=== PATIENT | female | born 1955 | race Caucasian/White ===

== ENCOUNTER 2023-05-30 12:11 | Emergency (ER) | payer MEDICARE, OTHER ==
[~2023-05-30] VITALS: Ht 152.4 cm; Wt 55.8 kg
[2023-05-30] MEDS ORDERED: ONDANSETRON HCL/PF 4 MG/2 ML VIAL IVP ONE (13:00)
[2023-05-30] MEDS ORDERED: MORPHINE SULFATE INJ 2 MG/ML DISP.SYRIN IV ONE ×2 (13:00→15:00)
[2023-05-30] MEDS ORDERED: IV NS 0.9% 1,000 ML BAG IV ONE (13:00)
[2023-05-30] MEDS ORDERED: ONDANSETRON HCL/PF 4 MG/2 ML VIAL ONE ×3 (13:09→15:17)
[2023-05-30] MEDS ORDERED: MORPHINE SULFATE INJ 4 MG/ML DISP.SYRIN ONE ×2 (13:09→15:11)
[2023-05-30 13:15] LABS: APPEARANCE,URINE CLEAR (CLEAR); BILIRUBIN,URINE 1+ (NEGATIVE); BLOOD, URINE 3+ Ery/uL (NEGATIVE); COLOR,URINE YELLOW (YELLOW); KETONES,URINE TRACE mg/dL (NEGATIVE); LEUKOCYTE ESTERASE ,URINE NEGATIVE (NEGATIVE); NITRITE, URINE NEGATIVE (NEGATIVE); PH,URINE 5.5 (5.0-8.0); PROTEIN,URINE 1+ mg/dl (NEGATIVE); UGLUCOSE NEGATIVE (NEGATIVE); UROBILINOGEN,URINE 0.2 EU/dL (0.2)
[2023-05-30 13:21] LABS: BASOPHILS % (AUTO) 0.5 % (0.0-2.0); EOSINOPHILS % (AUTO) 0.5 % (0.0-6.0); HEMATOCRIT 37 % (33-45); HEMOGLOBIN 12.1 g/dL (11.5-14.8); LYMPHOCYTES # (AUTO) 0.8 K/uL (0.8-4.8); LYMPHOCYTES % (AUTO) 10.6 % (20.0-44.0); MEAN CORPUSCULAR HEMOGLOBIN 28 PG (26.0-33.0); MEAN CORPUSCULAR HGB CONC 33 g/dl (31.0-36.0); MEAN CORPUSCULAR VOLUME 87 fL (82-100); MONOCYTES # (AUTO) 0.4 K/uL (0.1-1.30); MONOCYTES % (AUTO) 5.6 % (2.0-12.0); NEUTROPHILS # (AUTO) 6.4 K/uL (1.8-8.9); NEUTROPHILS % (AUTO) 82.8 % (43.0-81.0); PLATELET COUNT (AUTO) 251 K/uL (150-450); RED BLOOD CELL COUNT(AUTO) 4.27 MIL/uL (4.0-5.2); RED CELL DISTRIBUTION WIDTH 13.2 % (11.5-15.0); WHITE BLOOD COUNT (AUTO) 7.8 K/uL (4.3-11.0)
[2023-05-30 13:36] LABS: CALCIUM, SERUM 9.6 mg/dL (8.5-10.1); POTASSIUM 3.6 mmol/L (3.5-5.1)
[2023-05-30 13:42] LABS: ALBUMIN 3.8 g/dL (3.4-5.0); BILIRUBIN,DIRECT 0.1 mg/dL (0.0-0.2); BILIRUBIN,TOTAL 0.4 mg/dL (0.2-1.0); TOTAL PROTEIN, SERUM 7.8 g/dL (6.4-8.2)
[2023-05-30 13:49] LABS: ADD URINE CULTURE NO; BACTERIA,URINE None seen /HPF (None Seen); MUCUS,URINE Few /LPF (None Seen); SQUAMOUS EPITHELIAL CELL,UR RARE /HPF (None Seen); WBC,URINE 0-2 /HPF (0-3)
[2023-05-30] MEDS ORDERED: ONDANSETRON HCL/PF - ER 4 MG/2 ML VIAL IV ONE (15:00)
[2023-05-30] MEDS ORDERED: CIPROFLOXACIN HCL 250 MG TABLET PO ONE (15:00)
[2023-05-30] MEDS ORDERED: CIPROFLOXACIN HCL 250 MG TABLET ONE (15:11)
[2023-05-30] MEDS ORDERED: TRAM50TA2 PO (15:21)
[2023-05-30] MEDS ORDERED: CIPR-262 PO (15:21)
[2023-05-30] MEDS ORDERED: FLUC150T5 PO (15:21)
[2023-05-30] MEDS ORDERED: ONDA4TAB11 PO (15:21)
[2023-05-30 15:48] VITALS: BP 156/92; TEMP 98.3; O2SAT 98
== END 2023-05-30 15:48 | disposition home or self-care (01) ==
LOC: ER 12:11
DX: K29.80 Duodenitis without bleeding (principal); R10.9 Unspecified abdominal pain
CPT/HCPCS: 99285; 74176; 96374; 96361; 96375; 96376; 85025; 80048; 83690; 80076; 81001; 36415; J2270 ×2; J2405 ×4; J7030

== ENCOUNTER 2023-06-04 16:21 | Inpatient (IN) | payer MEDICARE, OTHER ==
[~2023-06-04] VITALS: Ht 162.6 cm; Wt 61.2 kg
[~2023-06-04 16:21] MED LIST: CIPR-262 PO; FLUC150T5 PO; ONDA4TAB11 PO; TRAM50TA2 PO
[2023-06-04] MEDS ORDERED: IV NS 0.9% 1,000 ML BAG IV ONE (17:00)
[2023-06-04] MEDS ORDERED: ONDANSETRON HCL/PF 4 MG/2 ML VIAL IVP ONE (17:00)
[2023-06-04] MEDS ORDERED: ONDANSETRON HCL/PF 4 MG/2 ML VIAL ONE (17:24)
[2023-06-04] MEDS ORDERED: MORPHINE SULFATE INJ 2 MG/ML DISP.SYRIN ONE (17:24)
[2023-06-04 17:27] LABS: BASOPHILS % (AUTO) 0.4 % (0.0-2.0); EOSINOPHILS % (AUTO) 0.4 % (0.0-6.0); HEMATOCRIT 37 % (33-45); HEMOGLOBIN 12.1 g/dL (11.5-14.8); LYMPHOCYTES # (AUTO) 0.8 K/uL (0.8-4.8); LYMPHOCYTES % (AUTO) 10.3 % (20.0-44.0); MEAN CORPUSCULAR HEMOGLOBIN 28 PG (26.0-33.0); MEAN CORPUSCULAR HGB CONC 33 g/dl (31.0-36.0); MEAN CORPUSCULAR VOLUME 86 fL (82-100); MONOCYTES # (AUTO) 0.3 K/uL (0.1-1.30); MONOCYTES % (AUTO) 3.5 % (2.0-12.0); NEUTROPHILS # (AUTO) 6.5 K/uL (1.8-8.9); NEUTROPHILS % (AUTO) 85.4 % (43.0-81.0); PLATELET COUNT (AUTO) 318 K/uL (150-450); RED BLOOD CELL COUNT(AUTO) 4.31 MIL/uL (4.0-5.2); RED CELL DISTRIBUTION WIDTH 12.9 % (11.5-15.0); WHITE BLOOD COUNT (AUTO) 7.6 K/uL (4.3-11.0)
[2023-06-04] MEDS ORDERED: MORPHINE SULFATE INJ 2 MG/ML DISP.SYRIN IV ONE (17:30)
[2023-06-04 17:46] LABS: ALBUMIN 4.1 g/dL (3.4-5.0); BILIRUBIN,DIRECT 0.1 mg/dL (0.0-0.2); BILIRUBIN,TOTAL 0.4 mg/dL (0.2-1.0); CALCIUM, SERUM 9.8 mg/dL (8.5-10.1); CREATININE 1.2 mg/dL (0.6-1.3); POTASSIUM 4.2 mmol/L (3.5-5.1); TOTAL PROTEIN, SERUM 8.1 g/dL (6.4-8.2)
[2023-06-04] MEDS ORDERED: MAG HYDROX/AL HYDROX/SIMETH 30 ML UDC PO ONE (18:00)
[2023-06-04] MEDS ORDERED: LIDOCAINE VISCOUS 2% UD 15 ML UDC MM ONE (18:00)
[2023-06-04] MEDS ORDERED: MAG HYDROX/AL HYDROX/SIMETH 30 ML UDC ONE (18:01)
[2023-06-04] MEDS ORDERED: LIDOCAINE VISCOUS 2% UD 15 ML UDC ONE (18:01)
[2023-06-04] MEDS ORDERED: PANTOPRAZOLE 40 MG VIAL ONE (18:14)
[2023-06-04] MEDS ORDERED: ERGO500093 PO (18:25)
[2023-06-04] MEDS ORDERED: CYCL30DR EACHEYE (18:25)
[2023-06-04] MEDS ORDERED: PANT40TA49 PO (18:25)
[2023-06-04] MEDS ORDERED: PANTOPRAZOLE 40 MG VIAL IV ONE (18:30)
[2023-06-04 20:30] VITALS: BP 123/69; TEMP 97.5; O2SAT 98
[2023-06-04] MEDS: IV NS 0.9% 1,000 ML IV SCH (20:53)
[2023-06-04] MEDS ORDERED: CEFEPIME 1 GM in IV D5W 50 ML IV ONE (21:00)
[2023-06-04] MEDS: FAMOTIDINE/PF INJ 20 MG/2 ML VIAL IV SCH (21:13)
[2023-06-04] MEDS: HEPARIN SODIUM, PORCINE 5000 UNITS/1 ML VIAL SQ SCH (21:16)
[2023-06-04] MEDS ORDERED: CEFEPIME 1 GM VIAL ONE (22:33)
[2023-06-05] MEDS: IV NS 0.9% 1,000 ML IV SCH ×2 (06:05→15:53)
[2023-06-05 06:58] LABS: BASOPHILS % (AUTO) 0.4 % (0.0-2.0); EOSINOPHILS # (AUTO) 0.1 K/uL (0.0-0.7); HEMATOCRIT 32 % (33-45); HEMOGLOBIN 10.5 g/dL (11.5-14.8); LYMPHOCYTES # (AUTO) 1.5 K/uL (0.8-4.8); LYMPHOCYTES % (AUTO) 24.6 % (20.0-44.0); MEAN CORPUSCULAR HEMOGLOBIN 28 PG (26.0-33.0); MEAN CORPUSCULAR HGB CONC 33 g/dl (31.0-36.0); MEAN CORPUSCULAR VOLUME 86 fL (82-100); MONOCYTES # (AUTO) 0.4 K/uL (0.1-1.30); MONOCYTES % (AUTO) 6.4 % (2.0-12.0); NEUTROPHILS # (AUTO) 4.1 K/uL (1.8-8.9); NEUTROPHILS % (AUTO) 66.6 % (43.0-81.0); PLATELET COUNT (AUTO) 257 K/uL (150-450); RED BLOOD CELL COUNT(AUTO) 3.71 MIL/uL (4.0-5.2); RED CELL DISTRIBUTION WIDTH 12.9 % (11.5-15.0); WHITE BLOOD COUNT (AUTO) 6.2 K/uL (4.3-11.0)
[2023-06-05 07:38] LABS: ALBUMIN 3.1 g/dL (3.4-5.0); BILIRUBIN,TOTAL 0.3 mg/dL (0.2-1.0); CALCIUM, SERUM 8.7 mg/dL (8.5-10.1); CREATININE 0.9 mg/dL (0.6-1.3); MAGNESIUM 2.2 mg/dL (1.8-2.4); POTASSIUM 3.6 mmol/L (3.5-5.1); TOTAL PROTEIN, SERUM 6.5 g/dL (6.4-8.2)
[2023-06-05 08:00] VITALS: BP 116/64; TEMP 97.6; O2SAT 100
[2023-06-05] MEDS: CEFEPIME 2 GM in IV D5W 100 ML IV SCH ×2 (08:46→20:35)
[2023-06-05] MEDS: DOCUSATE SODIUM LIQ 100 MG/10 ML UDC PO SCH ×2 (08:46→16:40)
[2023-06-05] MEDS: POLYETHYLENE GLYCOL 3350 17 GM POWD.PACK PO SCH (08:46)
[2023-06-05] MEDS: HEPARIN SODIUM, PORCINE 5000 UNITS/1 ML VIAL SQ SCH ×2 (08:48→20:53)
[2023-06-05] MEDS: SUCRALFATE 1 G TABLET PO SCH ×3 (13:23→21:02)
[2023-06-05 16:00] VITALS: BP 102/57; TEMP 97.2; O2SAT 96
[2023-06-05] MEDS: ONDANSETRON HCL/PF 4 MG/2 ML VIAL IVP PRN (18:40)
[2023-06-05] MEDS: MORPHINE SULFATE INJ 2 MG/ML DISP.SYRIN IV PRN (19:42)
[2023-06-05 20:00] VITALS: BP 132/67; TEMP 98.1; O2SAT 95
[2023-06-05] MEDS ORDERED: IV D5/0.45 NACL 1,000 ML IV ONE (20:30)
[2023-06-05] MEDS: FAMOTIDINE/PF INJ 20 MG/2 ML VIAL IV SCH (21:02)
[2023-06-06 06:09] LABS: CALCIUM, SERUM 8.1 mg/dL (8.5-10.1); CREATININE 0.9 mg/dL (0.6-1.3); POTASSIUM 3.2 mmol/L (3.5-5.1)
[2023-06-06] MEDS: SUCRALFATE 1 G TABLET PO SCH ×5 (07:57→21:19)
[2023-06-06] MEDS: IV D5/0.45 NACL 1,000 ML IV SCH ×3 (07:57→23:23)
[2023-06-06 08:00] VITALS: BP 111/60; TEMP 98.6; O2SAT 98
[2023-06-06] MEDS: POLYETHYLENE GLYCOL 3350 17 GM POWD.PACK PO SCH (08:58)
[2023-06-06] MEDS: HEPARIN SODIUM, PORCINE 5000 UNITS/1 ML VIAL SQ SCH ×2 (08:59→21:20)
[2023-06-06] MEDS: DOCUSATE SODIUM LIQ 100 MG/10 ML UDC PO SCH ×2 (08:59→16:39)
[2023-06-06] MEDS ORDERED: POTASSIUM CHLORIDE 20 MEQ TAB.PRT.SR PO ONE (09:00)
[2023-06-06] MEDS: CEFEPIME 2 GM in IV D5W 100 ML IV SCH ×2 (09:00→20:14)
[2023-06-06 09:36] LABS: BASOPHILS % (AUTO) 0.6 % (0.0-2.0); EOSINOPHILS # (AUTO) 0.2 K/uL (0.0-0.7); EOSINOPHILS % (AUTO) 2.6 % (0.0-6.0); HEMATOCRIT 31 % (33-45); HEMOGLOBIN 10.1 g/dL (11.5-14.8); LYMPHOCYTES # (AUTO) 1.3 K/uL (0.8-4.8); LYMPHOCYTES % (AUTO) 20.5 % (20.0-44.0); MEAN CORPUSCULAR HEMOGLOBIN 28 PG (26.0-33.0); MEAN CORPUSCULAR HGB CONC 33 g/dl (31.0-36.0); MEAN CORPUSCULAR VOLUME 86 fL (82-100); MONOCYTES # (AUTO) 0.4 K/uL (0.1-1.30); MONOCYTES % (AUTO) 6.4 % (2.0-12.0); NEUTROPHILS # (AUTO) 4.5 K/uL (1.8-8.9); NEUTROPHILS % (AUTO) 69.9 % (43.0-81.0); PLATELET COUNT (AUTO) 234 K/uL (150-450); RED BLOOD CELL COUNT(AUTO) 3.58 MIL/uL (4.0-5.2); RED CELL DISTRIBUTION WIDTH 13.2 % (11.5-15.0); WHITE BLOOD COUNT (AUTO) 6.4 K/uL (4.3-11.0)
[2023-06-06] MEDS: POTASSIUM CL. PREMIX PERIPHER. 50 ML IV SCH ×5 (09:53→12:01)
[2023-06-06 16:00] VITALS: BP 110/69; TEMP 98.4; O2SAT 97
[2023-06-06] MEDS: FAMOTIDINE (20 MG) 20 MG TABLET PO SCH (21:19)
[2023-06-06] MEDS: ONDANSETRON HCL/PF 4 MG/2 ML VIAL IVP PRN (23:12)
[2023-06-07 06:02] LABS: BASOPHILS # (AUTO) 0.1 K/uL (0.0-0.2); BASOPHILS % (AUTO) 0.7 % (0.0-2.0); EOSINOPHILS # (AUTO) 0.2 K/uL (0.0-0.7); HEMATOCRIT 32 % (33-45); HEMOGLOBIN 10.6 g/dL (11.5-14.8); LYMPHOCYTES # (AUTO) 1.2 K/uL (0.8-4.8); LYMPHOCYTES % (AUTO) 16.9 % (20.0-44.0); MEAN CORPUSCULAR HEMOGLOBIN 28 PG (26.0-33.0); MEAN CORPUSCULAR HGB CONC 33 g/dl (31.0-36.0); MEAN CORPUSCULAR VOLUME 86 fL (82-100); MONOCYTES # (AUTO) 0.5 K/uL (0.1-1.30); MONOCYTES % (AUTO) 7.3 % (2.0-12.0); NEUTROPHILS # (AUTO) 5.3 K/uL (1.8-8.9); NEUTROPHILS % (AUTO) 72.1 % (43.0-81.0); PLATELET COUNT (AUTO) 253 K/uL (150-450); RED BLOOD CELL COUNT(AUTO) 3.78 MIL/uL (4.0-5.2); RED CELL DISTRIBUTION WIDTH 12.7 % (11.5-15.0); WHITE BLOOD COUNT (AUTO) 7.3 K/uL (4.3-11.0)
[2023-06-07 06:08] LABS: CALCIUM, SERUM 9.2 mg/dL (8.5-10.1); CREATININE 0.8 mg/dL (0.6-1.3); POTASSIUM 3.4 mmol/L (3.5-5.1)
[2023-06-07] MEDS: IV D5/0.45 NACL 1,000 ML IV SCH ×3 (06:19→23:38)
[2023-06-07 07:00] VITALS: BP 107/65; TEMP 98.4; O2SAT 99
[2023-06-07] MEDS: DOCUSATE SODIUM LIQ 100 MG/10 ML UDC PO SCH ×3 (09:00→17:00)
[2023-06-07] MEDS: HEPARIN SODIUM, PORCINE 5000 UNITS/1 ML VIAL SQ SCH ×2 (09:17→21:38)
[2023-06-07] MEDS: POLYETHYLENE GLYCOL 3350 17 GM POWD.PACK PO SCH (09:18)
[2023-06-07] MEDS: SUCRALFATE 1 G TABLET PO SCH ×4 (09:19→21:37)
[2023-06-07] MEDS: CEFEPIME 2 GM in IV D5W 100 ML IV SCH (09:21)
[2023-06-07] MEDS: ONDANSETRON HCL/PF 4 MG/2 ML VIAL IVP PRN ×2 (09:50→15:00)
[2023-06-07] MEDS: MORPHINE SULFATE INJ 2 MG/ML DISP.SYRIN IV PRN ×2 (10:03→21:39)
[2023-06-07] MEDS ORDERED: POTASSIUM CHLORIDE 20 MEQ TAB.PRT.SR PO ONE (10:30)
[2023-06-07] MEDS: METOCLOPRAMIDE HCL 10 MG TABLET PO SCH ×3 (11:30→17:00)
[2023-06-07 16:00] VITALS: BP 107/60; TEMP 98.6; O2SAT 98
[2023-06-07] MEDS: PROCHLORPERAZINE EDISYLATE 10 MG/2 ML VIAL IM PRN (17:54)
[2023-06-07 20:00] VITALS: BP 118/77; TEMP 98.8; O2SAT 99
[2023-06-07] MEDS: FAMOTIDINE (20 MG) 20 MG TABLET PO SCH (21:37)
[2023-06-08 04:50] LABS: APPEARANCE,URINE CLEAR (CLEAR); BILIRUBIN,URINE NEGATIVE (NEGATIVE); BLOOD, URINE 2+ Ery/uL (NEGATIVE); COLOR,URINE YELLOW (YELLOW); KETONES,URINE TRACE mg/dL (NEGATIVE); LEUKOCYTE ESTERASE ,URINE NEGATIVE (NEGATIVE); NITRITE, URINE NEGATIVE (NEGATIVE); PROTEIN,URINE NEGATIVE (NEGATIVE); UGLUCOSE NEGATIVE (NEGATIVE); UROBILINOGEN,URINE 0.2 EU/dL (0.2)
[2023-06-08 04:54] LABS: PREGNANCY TEST URINE QUAL NEGATIVE (NEGATIVE)
[2023-06-08 05:20] LABS: ADD URINE CULTURE NO; BACTERIA,URINE None seen /HPF (None Seen); WBC,URINE NONE SEEN /HPF (0-3)
[2023-06-08] MEDS: IV D5/0.45 NACL 1,000 ML IV SCH ×2 (06:48→15:58)
[2023-06-08] MEDS: SUCRALFATE 1 G TABLET PO SCH (07:19)
[2023-06-08 08:00] VITALS: BP 109/64; TEMP 98.8; O2SAT 98
[2023-06-08] MEDS: METOCLOPRAMIDE HCL 10 MG TABLET PO SCH (08:22)
[2023-06-08] MEDS: POLYETHYLENE GLYCOL 3350 17 GM POWD.PACK PO SCH (08:22)
[2023-06-08] MEDS: HEPARIN SODIUM, PORCINE 5000 UNITS/1 ML VIAL SQ SCH ×2 (08:26→22:23)
[2023-06-08] MEDS: DOCUSATE SODIUM LIQ 100 MG/10 ML UDC PO SCH ×2 (08:27→16:06)
[2023-06-08] MEDS: METOCLOPRAMIDE HCL 10 MG/2 ML VIAL IV SCH ×3 (11:00→17:20)
[2023-06-08 11:10] LABS: CALCIUM, SERUM 9.8 mg/dL (8.5-10.1); POTASSIUM 3.3 mmol/L (3.5-5.1)
[2023-06-08 11:15] LABS: BASOPHILS # (AUTO) 0.1 K/uL (0.0-0.2); BASOPHILS % (AUTO) 0.5 % (0.0-2.0); EOSINOPHILS # (AUTO) 0.1 K/uL (0.0-0.7); HEMATOCRIT 36 % (33-45); LYMPHOCYTES # (AUTO) 1.3 K/uL (0.8-4.8); LYMPHOCYTES % (AUTO) 13.2 % (20.0-44.0); MEAN CORPUSCULAR HEMOGLOBIN 29 PG (26.0-33.0); MEAN CORPUSCULAR HGB CONC 34 g/dl (31.0-36.0); MEAN CORPUSCULAR VOLUME 86 fL (82-100); MONOCYTES # (AUTO) 0.6 K/uL (0.1-1.30); MONOCYTES % (AUTO) 6.4 % (2.0-12.0); NEUTROPHILS # (AUTO) 7.7 K/uL (1.8-8.9); NEUTROPHILS % (AUTO) 78.9 % (43.0-81.0); PLATELET COUNT (AUTO) 283 K/uL (150-450); RED BLOOD CELL COUNT(AUTO) 4.16 MIL/uL (4.0-5.2); RED CELL DISTRIBUTION WIDTH 12.7 % (11.5-15.0); WHITE BLOOD COUNT (AUTO) 9.8 K/uL (4.3-11.0)
[2023-06-08] MEDS ORDERED: POTASSIUM CHLORIDE 20 MEQ TAB.PRT.SR PO ONE (11:30)
[2023-06-08] MEDS ORDERED: DIATR MEGLU/DIATRIZOATE SODIUM 30 ML BOTTLE (GASTROGRAPHIN) ONE (15:25)
[2023-06-08] MEDS ORDERED: IOHEXOL-300 100 ML VIAL IV ONE (18:06)
[2023-06-08] MEDS ORDERED: IV NS 0.9% 250 ML IV ONE (18:06)
[2023-06-08] MEDS: FAMOTIDINE (20 MG) 20 MG TABLET PO SCH (22:23)
[2023-06-09] MEDS: IV D5/0.45 NACL 1,000 ML IV SCH ×4 (01:29→23:35)
[2023-06-09 07:00] VITALS: BP 107/68; TEMP 97.9; O2SAT 98
[2023-06-09] MEDS: METOCLOPRAMIDE HCL 10 MG/2 ML VIAL IV SCH ×3 (08:34→17:28)
[2023-06-09] MEDS: DOCUSATE SODIUM LIQ 100 MG/10 ML UDC PO SCH ×2 (08:37→16:54)
[2023-06-09] MEDS: HEPARIN SODIUM, PORCINE 5000 UNITS/1 ML VIAL SQ SCH ×2 (08:37→20:56)
[2023-06-09] MEDS: POLYETHYLENE GLYCOL 3350 17 GM POWD.PACK PO SCH (08:37)
[2023-06-09] MEDS: CYCLOSPORINE EACHEYE SCH ×2 (11:18→23:31)
[2023-06-09] MEDS: PROCHLORPERAZINE EDISYLATE 10 MG/2 ML VIAL IM PRN ×2 (14:09→20:56)
[2023-06-09 16:00] VITALS: BP 109/59; TEMP 97.5; O2SAT 97
[2023-06-09] MEDS: ENSURE CLEAR 237 ML LIQUID (MIX BERRY) PO SCH (17:29)
[2023-06-09 20:00] VITALS: BP 127/78; TEMP 97.7; O2SAT 80; O2SAT 96
[2023-06-09] MEDS: FAMOTIDINE (20 MG) 20 MG TABLET PO SCH (21:34)
[2023-06-09 22:41] LABS: IRON, SERUM 38 ug/dl (50-175); TOTAL IRON BINDING CAPACITY 87 ug/dl (250-450)
[2023-06-10 06:06] LABS: CARBOHYDRATE AG 19-9 9 U/mL (0-35)
[2023-06-10 06:47] LABS: THYROID STIMULATING HORMONE 1.735 uIU/mL (0.358-3.74)
[2023-06-10] MEDS ORDERED: IV NS 0.9% 250 ML IV ONE (08:40)
[2023-06-10] MEDS ORDERED: IOHEXOL-300 100 ML VIAL IV ONE (08:40)
[2023-06-10] MEDS: DOCUSATE SODIUM LIQ 100 MG/10 ML UDC PO SCH ×4 (09:00→17:14)
[2023-06-10] MEDS: POLYETHYLENE GLYCOL 3350 17 GM POWD.PACK PO SCH ×2 (09:00→09:33)
[2023-06-10] MEDS: IV D5/0.45 NACL 1,000 ML IV SCH ×2 (09:32→21:33)
[2023-06-10] MEDS: ENSURE CLEAR 237 ML LIQUID (MIX BERRY) PO SCH ×2 (09:33→17:14)
[2023-06-10] MEDS: METOCLOPRAMIDE HCL 10 MG/2 ML VIAL IV SCH ×3 (09:34→17:14)
[2023-06-10] MEDS: HEPARIN SODIUM, PORCINE 5000 UNITS/1 ML VIAL SQ SCH ×2 (09:35→21:35)
[2023-06-10] MEDS: CYCLOSPORINE EACHEYE SCH ×2 (11:30→22:34)
[2023-06-10] MEDS: PROCHLORPERAZINE EDISYLATE 10 MG/2 ML VIAL IM PRN ×2 (14:07→21:33)
[2023-06-10 16:05] VITALS: BP 134/68; TEMP 98.6; O2SAT 99
[2023-06-10] MEDS: FERROUS SULFATE (325 MG) 325 MG/TAB TABLET PO SCH ×2 (17:00→17:25)
[2023-06-10 20:00] VITALS: BP 129/81; TEMP 98.5; O2SAT 97
[2023-06-10] MEDS: FAMOTIDINE (20 MG) 20 MG TABLET PO SCH (21:36)
[2023-06-10] MEDS ORDERED: Z GUARD REMEDY 4 OZ OINT TP PRN (22:00)
[2023-06-11] MEDS: PROCHLORPERAZINE EDISYLATE 10 MG/2 ML VIAL IM PRN ×2 (05:42→10:42)
[2023-06-11 05:52] LABS: BASOPHILS # (AUTO) 0.1 K/uL (0.0-0.2); BASOPHILS % (AUTO) 0.6 % (0.0-2.0); EOSINOPHILS # (AUTO) 0.2 K/uL (0.0-0.7); EOSINOPHILS % (AUTO) 2.1 % (0.0-6.0); HEMATOCRIT 30 % (33-45); HEMOGLOBIN 10.1 g/dL (11.5-14.8); LYMPHOCYTES # (AUTO) 1.1 K/uL (0.8-4.8); LYMPHOCYTES % (AUTO) 14.7 % (20.0-44.0); MEAN CORPUSCULAR HEMOGLOBIN 29 PG (26.0-33.0); MEAN CORPUSCULAR HGB CONC 34 g/dl (31.0-36.0); MEAN CORPUSCULAR VOLUME 85 fL (82-100); MONOCYTES # (AUTO) 0.6 K/uL (0.1-1.30); MONOCYTES % (AUTO) 7.8 % (2.0-12.0); NEUTROPHILS # (AUTO) 5.8 K/uL (1.8-8.9); NEUTROPHILS % (AUTO) 74.8 % (43.0-81.0); PLATELET COUNT (AUTO) 220 K/uL (150-450); RED BLOOD CELL COUNT(AUTO) 3.52 MIL/uL (4.0-5.2); RED CELL DISTRIBUTION WIDTH 12.5 % (11.5-15.0); WHITE BLOOD COUNT (AUTO) 7.8 K/uL (4.3-11.0)
[2023-06-11 06:34] LABS: CALCIUM, SERUM 8.9 mg/dL (8.5-10.1); CREATININE 0.8 mg/dL (0.6-1.3)
[2023-06-11 07:00] VITALS: BP 106/71; TEMP 99; O2SAT 98
[2023-06-11 07:27] LABS: POTASSIUM 2.7 mmol/L (3.5-5.1)
[2023-06-11] MEDS: POLYETHYLENE GLYCOL 3350 17 GM POWD.PACK PO SCH ×2 (09:00→09:01)
[2023-06-11] MEDS: DOCUSATE SODIUM LIQ 100 MG/10 ML UDC PO SCH ×3 (09:00→17:00)
[2023-06-11] MEDS: FERROUS SULFATE (325 MG) 325 MG/TAB TABLET PO SCH ×2 (09:01→17:29)
[2023-06-11] MEDS: METOCLOPRAMIDE HCL 10 MG/2 ML VIAL IV SCH ×3 (09:01→17:29)
[2023-06-11] MEDS: HEPARIN SODIUM, PORCINE 5000 UNITS/1 ML VIAL SQ SCH ×2 (09:02→20:54)
[2023-06-11] MEDS: ENSURE CLEAR 237 ML LIQUID (MIX BERRY) PO SCH ×2 (09:06→17:00)
[2023-06-11] MEDS: IV D5/0.45 NACL 1,000 ML IV SCH ×2 (09:06→21:47)
[2023-06-11 10:06] LABS: FREE KAPPA LT CHAINS SERUM 18.2 mg/L (3.3-19.4); FREE LAMBDA LT CHAIN SERUM 14.9 mg/L (5.7-26.3); KAPPA/LAMBDA RATIO SERUM 1.22 (0.26-1.65)
[2023-06-11] MEDS: CYCLOSPORINE EACHEYE SCH ×2 (10:33→22:32)
[2023-06-11] MEDS: POTASSIUM CHLORIDE 20 MEQ POWDER PACKET PO ONE ×2 (10:34→10:40)
[2023-06-11] MEDS: POTASSIUM CL. PREMIX PERIPHER. 50 ML IV SCH ×12 (10:34→23:04)
[2023-06-11] MEDS ORDERED: POTASSIUM CL. PREMIX PERIPHER. 50 ML IV SCH (11:00)
[2023-06-11 12:06] LABS: IMMUNOGLOBULIN A, SERUM 117 mg/dL (87-352); IMMUNOGLOBULIN G, SERUM 761 mg/dL (586-1602); IMMUNOGLOBULIN M, SERUM 151 mg/dL (26-217)
[2023-06-11] MEDS ORDERED: ONDANSETRON HCL/PF 4 MG/2 ML VIAL IV PRN (15:30)
[2023-06-11] MEDS: PROCHLORPERAZINE EDISYLATE 10 MG/2 ML VIAL IVP PRN (15:53)
[2023-06-11 16:00] VITALS: BP 127/70; TEMP 98.6; O2SAT 96
[2023-06-11] MEDS ORDERED: POTASSIUM CHLORIDE 20 MEQ POWDER PACKET PO SCH (17:00)
[2023-06-11 17:16] LABS: ALBUMIN 3.1 g/dL (3.4-5.0); BILIRUBIN,DIRECT 0.1 mg/dL (0.0-0.2); BILIRUBIN,TOTAL 0.5 mg/dL (0.2-1.0); TOTAL PROTEIN, SERUM 6.5 g/dL (6.4-8.2)
[2023-06-11] MEDS ORDERED: POTASSIUM CHLORIDE 20 MEQ POWDER PACKET PO ONE (18:00)
[2023-06-11] MEDS: ONDANSETRON HCL/PF 4 MG/2 ML VIAL IV PRN (18:27)
[2023-06-11 20:00] VITALS: BP 132/76; TEMP 98.1; O2SAT 98
[2023-06-11] MEDS ORDERED: POTASSIUM CHLORIDE 10 MEQ/50 ML PREMIXED IVPB FOR PERIPHERAL LINE IV SCH (20:00)
[2023-06-11] MEDS: FAMOTIDINE (20 MG) 20 MG TABLET PO SCH (21:07)
[2023-06-11 23:13] LABS: OCCULT BLOOD STOOL NEGATIVE (NEGATIVE)
[2023-06-12] MEDS ORDERED: Magnesium 1GM/D5W 100ML PREMIX 100 ML IV SCH
[2023-06-12] MEDS ORDERED: Magnesium 1GM/D5W 100ML PREMIX PIGGYBACK IV ONE
[2023-06-12] MEDS ORDERED: PROCHLORPERAZINE EDISYLATE 10 MG/2 ML VIAL ONE (01:23)
[2023-06-12] MEDS: PROCHLORPERAZINE EDISYLATE 10 MG/2 ML VIAL IVP PRN ×2 (01:26→11:27)
[2023-06-12 06:50] LABS: BASOPHILS % (AUTO) 0.5 % (0.0-2.0); EOSINOPHILS # (AUTO) 0.1 K/uL (0.0-0.7); EOSINOPHILS % (AUTO) 1.2 % (0.0-6.0); HEMATOCRIT 32 % (33-45); HEMOGLOBIN 10.4 g/dL (11.5-14.8); LYMPHOCYTES # (AUTO) 0.9 K/uL (0.8-4.8); LYMPHOCYTES % (AUTO) 10.4 % (20.0-44.0); MEAN CORPUSCULAR HEMOGLOBIN 28 PG (26.0-33.0); MEAN CORPUSCULAR HGB CONC 33 g/dl (31.0-36.0); MEAN CORPUSCULAR VOLUME 86 fL (82-100); MONOCYTES # (AUTO) 0.6 K/uL (0.1-1.30); NEUTROPHILS # (AUTO) 7.3 K/uL (1.8-8.9); NEUTROPHILS % (AUTO) 80.9 % (43.0-81.0); PLATELET COUNT (AUTO) 227 K/uL (150-450); RED BLOOD CELL COUNT(AUTO) 3.71 MIL/uL (4.0-5.2); RED CELL DISTRIBUTION WIDTH 13.2 % (11.5-15.0)
[2023-06-12 07:00] VITALS: BP 140/75; TEMP 98.4; O2SAT 96
[2023-06-12 07:06] LABS: CANCER AG, 125 23.6 U/mL (0.0-38.1); CANCER AG, 15-3 14.2 U/mL (0.0-25.0); FOLIC ACID 8.3 ng/mL (>3.0)
[2023-06-12 07:18] LABS: CALCIUM, SERUM 9.2 mg/dL (8.5-10.1); CREATININE 0.9 mg/dL (0.6-1.3); POTASSIUM 3.7 mmol/L (3.5-5.1)
[2023-06-12] MEDS: ENSURE CLEAR 237 ML LIQUID (MIX BERRY) PO SCH ×2 (08:00→16:10)
[2023-06-12] MEDS: DOCUSATE SODIUM LIQ 100 MG/10 ML UDC PO SCH ×3 (08:03→16:10)
[2023-06-12] MEDS: METOCLOPRAMIDE HCL 10 MG/2 ML VIAL IV SCH (08:03)
[2023-06-12] MEDS: POLYETHYLENE GLYCOL 3350 17 GM POWD.PACK PO SCH ×2 (08:03→08:10)
[2023-06-12] MEDS: FERROUS SULFATE (325 MG) 325 MG/TAB TABLET PO SCH ×2 (08:03→16:10)
[2023-06-12] MEDS: LORAZEPAM INJ 2 MG/ML VIAL IV PRN ×2 (09:08→18:34)
[2023-06-12] MEDS: IV D5/0.45 NACL 1,000 ML IV SCH (11:41)
[2023-06-12] MEDS: CYCLOSPORINE EACHEYE SCH ×2 (11:42→23:40)
[2023-06-12 16:00] VITALS: BP 120/74; O2SAT 97
[2023-06-12] MEDS ORDERED: TPN/PPN PER PHARMACY IV PRN (16:30)
[2023-06-12] MEDS ORDERED: DEXTROSE 50%-WATER 50 ML DISP.SYRIN IV PRN (16:30)
[2023-06-12] MEDS: BLOOD SUGAR DIAGNOSTIC 1 EACH STRIP IN SCH (18:45)
[2023-06-12 20:00] VITALS: BP 119/79; TEMP 98.8; O2SAT 96
[2023-06-12] MEDS: FAMOTIDINE (20 MG) 20 MG TABLET PO SCH (23:39)
[2023-06-13] MEDS: BLOOD SUGAR DIAGNOSTIC 1 EACH STRIP IN SCH ×4 (00:23→18:00)
[2023-06-13] MEDS: IV D5/0.45 NACL 1,000 ML IV SCH ×2 (02:00→14:45)
[2023-06-13 03:07] LABS: HEPATITIS B SURFACE AB Reactive (.)
[2023-06-13 05:08] LABS: *SPE ALBUMIN 2.9 g/dL (2.9-4.4); *SPE ALPHA-1-GLOBULIN 0.3 g/dL (0.0-0.4); *SPE ALPHA-2-GLOBULIN 0.9 g/dL (0.4-1.0); *SPE BETA GLOBULIN 0.9 g/dL (0.7-1.3); *SPE GLOBULIN, TOTAL 2.9 g/dL (2.2-3.9); *SPE M-SPIKE Not Observed g/dL (Not Observed); *SPE PROTEIN TOTAL 5.8 g/dL (6.0-8.5); *SPEGAMMA GLOBULIN 0.8 g/dL (0.4-1.8)
[2023-06-13 07:13] LABS: BASOPHILS % (AUTO) 0.5 % (0.0-2.0); EOSINOPHILS # (AUTO) 0.2 K/uL (0.0-0.7); EOSINOPHILS % (AUTO) 2.5 % (0.0-6.0); HEMATOCRIT 31 % (33-45); HEMOGLOBIN 10.2 g/dL (11.5-14.8); LYMPHOCYTES # (AUTO) 1.1 K/uL (0.8-4.8); LYMPHOCYTES % (AUTO) 10.8 % (20.0-44.0); MEAN CORPUSCULAR HEMOGLOBIN 28 PG (26.0-33.0); MEAN CORPUSCULAR HGB CONC 33 g/dl (31.0-36.0); MEAN CORPUSCULAR VOLUME 85 fL (82-100); MONOCYTES # (AUTO) 0.7 K/uL (0.1-1.30); MONOCYTES % (AUTO) 7.3 % (2.0-12.0); NEUTROPHILS # (AUTO) 7.8 K/uL (1.8-8.9); NEUTROPHILS % (AUTO) 78.9 % (43.0-81.0); PLATELET COUNT (AUTO) 223 K/uL (150-450); RED BLOOD CELL COUNT(AUTO) 3.63 MIL/uL (4.0-5.2); RED CELL DISTRIBUTION WIDTH 12.5 % (11.5-15.0); WHITE BLOOD COUNT (AUTO) 9.8 K/uL (4.3-11.0)
[2023-06-13 07:38] LABS: CALCIUM, SERUM 8.7 mg/dL (8.5-10.1); CREATININE 0.9 mg/dL (0.6-1.3); PHOSPHORUS 3.4 mg/dL (2.5-4.9); POTASSIUM 3.2 mmol/L (3.5-5.1)
[2023-06-13 08:00] VITALS: BP 110/76; TEMP 97.7; O2SAT 98
[2023-06-13] MEDS: ENSURE CLEAR 237 ML LIQUID (MIX BERRY) PO SCH ×2 (08:00→16:37)
[2023-06-13] MEDS: LORAZEPAM INJ 2 MG/ML VIAL IV PRN ×2 (08:27→19:26)
[2023-06-13] MEDS: DOCUSATE SODIUM LIQ 100 MG/10 ML UDC PO SCH ×2 (08:57→16:37)
[2023-06-13] MEDS: FERROUS SULFATE (325 MG) 325 MG/TAB TABLET PO SCH ×2 (08:57→16:37)
[2023-06-13] MEDS: POLYETHYLENE GLYCOL 3350 17 GM POWD.PACK PO SCH (09:00)
[2023-06-13] MEDS: POTASSIUM CL. PREMIX PERIPHER. 50 ML IV SCH ×4 (10:13→13:48)
[2023-06-13] MEDS: CYCLOSPORINE EACHEYE SCH ×2 (10:58→23:00)
[2023-06-13] MEDS: INSULIN REGULAR, HUMAN 100 UNIT/ML 3 ML VIAL SQ PRN (11:57)
[2023-06-13] MEDS ORDERED: ANESTHESIA TRAY IN PYXIS 1 EA TRAY MC ONE (14:34)
[2023-06-13] MEDS ORDERED: FAMOTIDINE/PF INJ 20 MG/2 ML VIAL IV ONE (15:16)
[2023-06-13] MEDS ORDERED: SUCCINYLCHOLINE CHLORIDE 20 MG/ML VIAL ONE (15:16)
[2023-06-13 16:00] VITALS: BP 110/70; TEMP 98.2; O2SAT 98
[2023-06-13 20:00] VITALS: BP 101/74; TEMP 97.9; O2SAT 98
[2023-06-13] MEDS ORDERED: TPN BAG #1 IV SCH ×4 (21:00)
[2023-06-13] MEDS: FAMOTIDINE (20 MG) 20 MG TABLET PO SCH (21:47)
[2023-06-13 22:38] VITALS: TEMP 97.9
[2023-06-14] MEDS: BLOOD SUGAR DIAGNOSTIC 1 EACH STRIP IN SCH ×5 (00:01→23:31)
[2023-06-14 06:25] LABS: BASOPHILS % (AUTO) 0.3 % (0.0-2.0); EOSINOPHILS # (AUTO) 0.2 K/uL (0.0-0.7); EOSINOPHILS % (AUTO) 2.4 % (0.0-6.0); HEMATOCRIT 32 % (33-45); HEMOGLOBIN 10.3 g/dL (11.5-14.8); LYMPHOCYTES % (AUTO) 9.5 % (20.0-44.0); MEAN CORPUSCULAR HEMOGLOBIN 28 PG (26.0-33.0); MEAN CORPUSCULAR HGB CONC 32 g/dl (31.0-36.0); MEAN CORPUSCULAR VOLUME 86 fL (82-100); MONOCYTES # (AUTO) 0.7 K/uL (0.1-1.30); MONOCYTES % (AUTO) 7.2 % (2.0-12.0); NEUTROPHILS # (AUTO) 8.4 K/uL (1.8-8.9); NEUTROPHILS % (AUTO) 80.6 % (43.0-81.0); PLATELET COUNT (AUTO) 203 K/uL (150-450); RED CELL DISTRIBUTION WIDTH 12.7 % (11.5-15.0); WHITE BLOOD COUNT (AUTO) 10.4 K/uL (4.3-11.0)
[2023-06-14 06:44] LABS: CALCIUM, SERUM 8.3 mg/dL (8.5-10.1); CREATININE 0.8 mg/dL (0.6-1.3); PHOSPHORUS 3.2 mg/dL (2.5-4.9)
[2023-06-14 08:00] VITALS: BP 118/81; TEMP 98.1; O2SAT 98
[2023-06-14] MEDS: ENSURE CLEAR 237 ML LIQUID (MIX BERRY) PO SCH ×2 (08:00→16:28)
[2023-06-14] MEDS: POLYETHYLENE GLYCOL 3350 17 GM POWD.PACK PO SCH (09:00)
[2023-06-14] MEDS: DOCUSATE SODIUM LIQ 100 MG/10 ML UDC PO SCH ×2 (09:00→16:28)
[2023-06-14] MEDS: FERROUS SULFATE (325 MG) 325 MG/TAB TABLET PO SCH ×2 (09:00→16:28)
[2023-06-14] MEDS: POTASSIUM CL. PREMIX PERIPHER. 50 ML IV SCH ×6 (09:08→14:43)
[2023-06-14] MEDS: MORPHINE SULFATE INJ 2 MG/ML DISP.SYRIN IV PRN (10:13)
[2023-06-14] MEDS: CYCLOSPORINE EACHEYE SCH ×2 (11:00→22:03)
[2023-06-14] MEDS: INSULIN REGULAR, HUMAN 100 UNIT/ML 3 ML VIAL SQ PRN ×2 (11:52→17:38)
[2023-06-14] MEDS: MENTHOL/CETYLPYRD (CEPACOL) 1 LOZ LOZENGE PO PRN (12:25)
[2023-06-14] MEDS ORDERED: TPN BAG #2 IV SCH ×4 (13:51)
[2023-06-14] MEDS: FAT EMULSION 20% 500 ML in PREMIX 1 EA IV SCH (15:32)
[2023-06-14 16:00] VITALS: BP 119/74; TEMP 99.3; O2SAT 98
[2023-06-14 20:00] VITALS: BP_SYST 124; BP_DIAS 23; BP_DIAS 73; TEMP 98.8; O2SAT 94
[2023-06-14] MEDS ORDERED: POTASSIUM CL. PREMIX PERIPHER. 50 ML IV SCH (21:00)
[2023-06-14] MEDS: FAMOTIDINE (20 MG) 20 MG TABLET PO SCH (21:10)
[2023-06-14] MEDS: LORAZEPAM INJ 2 MG/ML VIAL IV PRN (21:33)
[2023-06-15] MEDS: ONDANSETRON HCL/PF 4 MG/2 ML VIAL IV PRN (02:23)
[2023-06-15] MEDS ORDERED: TPN BAG #3 IV SCH ×3 (02:31)
[2023-06-15] MEDS: LORAZEPAM INJ 2 MG/ML VIAL IV PRN ×2 (03:34→18:56)
[2023-06-15] MEDS: BLOOD SUGAR DIAGNOSTIC 1 EACH STRIP IN SCH ×4 (05:56→23:33)
[2023-06-15 06:52] LABS: BASOPHILS % (AUTO) 0.3 % (0.0-2.0); EOSINOPHILS # (AUTO) 0.4 K/uL (0.0-0.7); EOSINOPHILS % (AUTO) 3.8 % (0.0-6.0); HEMATOCRIT 35 % (33-45); HEMOGLOBIN 11.5 g/dL (11.5-14.8); LYMPHOCYTES # (AUTO) 1.3 K/uL (0.8-4.8); LYMPHOCYTES % (AUTO) 11.5 % (20.0-44.0); MEAN CORPUSCULAR HEMOGLOBIN 28 PG (26.0-33.0); MEAN CORPUSCULAR HGB CONC 33 g/dl (31.0-36.0); MEAN CORPUSCULAR VOLUME 85 fL (82-100); MONOCYTES # (AUTO) 0.9 K/uL (0.1-1.30); MONOCYTES % (AUTO) 7.6 % (2.0-12.0); NEUTROPHILS # (AUTO) 8.6 K/uL (1.8-8.9); NEUTROPHILS % (AUTO) 76.8 % (43.0-81.0); PLATELET COUNT (AUTO) 233 K/uL (150-450); RED BLOOD CELL COUNT(AUTO) 4.09 MIL/uL (4.0-5.2); RED CELL DISTRIBUTION WIDTH 12.7 % (11.5-15.0); WHITE BLOOD COUNT (AUTO) 11.2 K/uL (4.3-11.0)
[2023-06-15 06:59] LABS: MAGNESIUM 1.9 mg/dL (1.8-2.4); PHOSPHORUS 2.9 mg/dL (2.5-4.9)
[2023-06-15 07:00] VITALS: BP 110/77; TEMP 97.3; O2SAT 97
[2023-06-15] MEDS: ENSURE CLEAR 237 ML LIQUID (MIX BERRY) PO SCH ×2 (08:00→16:57)
[2023-06-15] MEDS: POLYETHYLENE GLYCOL 3350 17 GM POWD.PACK PO SCH (09:00)
[2023-06-15] MEDS: DOCUSATE SODIUM LIQ 100 MG/10 ML UDC PO SCH ×2 (09:00→16:57)
[2023-06-15] MEDS: FERROUS SULFATE (325 MG) 325 MG/TAB TABLET PO SCH ×2 (09:00→16:57)
[2023-06-15] MEDS: CYCLOSPORINE EACHEYE SCH ×2 (11:00→23:00)
[2023-06-15] MEDS: POTASSIUM CL. PREMIX PERIPHER. 50 ML IV SCH ×6 (11:54→18:44)
[2023-06-15] MEDS: INSULIN REGULAR, HUMAN 100 UNIT/ML 3 ML VIAL SQ PRN ×3 (12:22→23:33)
[2023-06-15] MEDS ORDERED: TPN BAG #4 IV SCH ×4 (15:10)
[2023-06-15 16:00] VITALS: BP 116/76; TEMP 97.7; O2SAT 96
[2023-06-15] MEDS ORDERED: POTASSIUM CL. PREMIX PERIPHER. 50 ML ONE ×3 (16:27→18:44)
[2023-06-15] MEDS ORDERED: Magnesium 1GM/D5W 100ML PREMIX 100 ML IV SCH (20:00)
[2023-06-15] MEDS ORDERED: POTASSIUM CL. PREMIX PERIPHER. 50 ML IV SCH (21:00)
[2023-06-15] MEDS: FAMOTIDINE (20 MG) 20 MG TABLET PO SCH (22:00)
[2023-06-16] VITALS (36 sets, daily range): BP systolic 93–121; BP diastolic 54–81; TEMP 98.6–98.8; O2SAT 98–100
[2023-06-16] MEDS: LORAZEPAM INJ 2 MG/ML VIAL IV PRN ×2 (01:37→23:23)
[2023-06-16] MEDS ORDERED: TPN BAG #5 IV SCH ×2 (03:05)
[2023-06-16] MEDS: BLOOD SUGAR DIAGNOSTIC 1 EACH STRIP IN SCH ×3 (06:09→17:30)
[2023-06-16] MEDS ORDERED: LIDOCAINE 1%-EPI 1:100,000 20 ML VIAL ONE (06:52)
[2023-06-16] MEDS ORDERED: BUPIVACAINE 0.5 % PF 150 MG/30 ML VIAL ONE (06:52)
[2023-06-16 06:56] LABS: BASOPHILS # (AUTO) 0.1 K/uL (0.0-0.2); BASOPHILS % (AUTO) 0.5 % (0.0-2.0); EOSINOPHILS # (AUTO) 0.3 K/uL (0.0-0.7); EOSINOPHILS % (AUTO) 2.9 % (0.0-6.0); HEMATOCRIT 39 % (33-45); LYMPHOCYTES # (AUTO) 1.2 K/uL (0.8-4.8); LYMPHOCYTES % (AUTO) 11.6 % (20.0-44.0); MEAN CORPUSCULAR HEMOGLOBIN 28 PG (26.0-33.0); MEAN CORPUSCULAR HGB CONC 33 g/dl (31.0-36.0); MEAN CORPUSCULAR VOLUME 85 fL (82-100); MONOCYTES # (AUTO) 0.9 K/uL (0.1-1.30); MONOCYTES % (AUTO) 8.7 % (2.0-12.0); NEUTROPHILS # (AUTO) 7.8 K/uL (1.8-8.9); NEUTROPHILS % (AUTO) 76.3 % (43.0-81.0); PLATELET COUNT (AUTO) 272 K/uL (150-450); RED BLOOD CELL COUNT(AUTO) 4.62 MIL/uL (4.0-5.2); RED CELL DISTRIBUTION WIDTH 12.6 % (11.5-15.0); WHITE BLOOD COUNT (AUTO) 10.2 K/uL (4.3-11.0)
[2023-06-16 07:22] LABS: CREATININE 1.4 mg/dL (0.6-1.3); MAGNESIUM 2.4 mg/dL (1.8-2.4); PHOSPHORUS 4.2 mg/dL (2.5-4.9); POTASSIUM 3.2 mmol/L (3.5-5.1)
[2023-06-16] MEDS ORDERED: SCOPOLAMINE PATCH 1 MG/72HR TD ONE (07:24)
[2023-06-16] MEDS: ENSURE CLEAR 237 ML LIQUID (MIX BERRY) PO SCH ×2 (08:00→16:14)
[2023-06-16] MEDS ORDERED: FENTANYL PF 100MCG/2ML AMPUL ONE (08:33)
[2023-06-16] MEDS: DOCUSATE SODIUM LIQ 100 MG/10 ML UDC PO SCH ×2 (09:00→16:14)
[2023-06-16] MEDS: POLYETHYLENE GLYCOL 3350 17 GM POWD.PACK PO SCH (09:00)
[2023-06-16] MEDS: FERROUS SULFATE (325 MG) 325 MG/TAB TABLET PO SCH ×2 (09:00→16:14)
[2023-06-16] MEDS ORDERED: BACITRACIN ZINC OINT PACKET 1 EA PACKET TP ONE (09:57)
[2023-06-16] MEDS ORDERED: HYDROMORPHONE 1 MG/1 ML DISP.SYRIN ONE (10:21)
[2023-06-16] MEDS ORDERED: KETOROLAC TROMETHAMINE 15 MG/ML VIAL IV PRN (11:30)
[2023-06-16] MEDS: CYCLOSPORINE EACHEYE SCH ×2 (12:00→23:00)
[2023-06-16] MEDS: POTASSIUM CL. PREMIX PERIPHER. 50 ML IV SCH ×4 (12:07→15:30)
[2023-06-16] MEDS: FAT EMULSION 20% 500 ML in PREMIX 1 EA IV SCH (14:45)
[2023-06-16] MEDS ORDERED: TPN BAG #6 IV SCH ×12 (15:00→16:00)
[2023-06-16] MEDS ORDERED: IV LR 1000 ML 1,000 ML IV SCH (15:30)
[2023-06-16] MEDS: INSULIN REGULAR, HUMAN 100 UNIT/ML 3 ML VIAL SQ PRN (17:30)
[2023-06-16] MEDS: KETOROLAC TROMETHAMINE INJ 30 MG/ML VIAL IV PRN (19:14)
[2023-06-16] MEDS: FAMOTIDINE/PF INJ 20 MG/2 ML VIAL IV SCH (21:55)
[2023-06-17] VITALS (42 sets, daily range): BP systolic 87–124; BP diastolic 48–83; TEMP 98.2–100.6; O2SAT 95–100
[2023-06-17] MEDS: BLOOD SUGAR DIAGNOSTIC 1 EACH STRIP IN SCH ×4 (00:24→17:29)
[2023-06-17] MEDS ORDERED: TPN BAG #7 IV SCH ×6 (01:18→04:00)
[2023-06-17] MEDS: IV LR 1000 ML 1,000 ML IV PRN ×2 (02:33→20:35)
[2023-06-17] MEDS: MORPHINE SULFATE INJ 2 MG/ML DISP.SYRIN IV PRN (02:39)
[2023-06-17 03:27] LABS: CREATININE, URINE 181.9 MG/DL (30.0-125.0); URINE TOTAL PROTEIN 177.2 mg/dL (0-11.9)
[2023-06-17] MEDS ORDERED: IV LR 1000 ML 1,000 ML BAG IV PRN (03:30)
[2023-06-17 05:26] LABS: APPEARANCE,URINE CLEAR (CLEAR); BILIRUBIN,URINE NEGATIVE (NEGATIVE); BLOOD, URINE 1+ Ery/uL (NEGATIVE); COLOR,URINE YELLOW (YELLOW); KETONES,URINE NEGATIVE (NEGATIVE); LEUKOCYTE ESTERASE ,URINE NEGATIVE (NEGATIVE); NITRITE, URINE NEGATIVE (NEGATIVE); PH,URINE 5.5 (5.0-8.0); PROTEIN,URINE NEGATIVE (NEGATIVE); UGLUCOSE TRACE mg/dL (NEGATIVE); UROBILINOGEN,URINE 0.2 EU/dL (0.2)
[2023-06-17 05:34] LABS: ADD URINE CULTURE NO; BACTERIA,URINE Rare /HPF (None Seen); MUCUS,URINE Few /LPF (None Seen); SQUAMOUS EPITHELIAL CELL,UR Few /HPF (None Seen)
[2023-06-17 05:39] LABS: BASOPHILS % (AUTO) 0.5 % (0.0-2.0); EOSINOPHILS # (AUTO) 0.1 K/uL (0.0-0.7); EOSINOPHILS % (AUTO) 1.3 % (0.0-6.0); HEMATOCRIT 29 % (33-45); HEMOGLOBIN 9.6 g/dL (11.5-14.8); LYMPHOCYTES # (AUTO) 0.8 K/uL (0.8-4.8); LYMPHOCYTES % (AUTO) 7.9 % (20.0-44.0); MAGNESIUM 1.7 mg/dL (1.8-2.4); MEAN CORPUSCULAR HEMOGLOBIN 28 PG (26.0-33.0); MEAN CORPUSCULAR HGB CONC 33 g/dl (31.0-36.0); MEAN CORPUSCULAR VOLUME 86 fL (82-100); MONOCYTES # (AUTO) 1.1 K/uL (0.1-1.30); MONOCYTES % (AUTO) 11.3 % (2.0-12.0); PHOSPHORUS 3.1 mg/dL (2.5-4.9); PLATELET COUNT (AUTO) 187 K/uL (150-450); RED BLOOD CELL COUNT(AUTO) 3.41 MIL/uL (4.0-5.2); SODIUM SERUM 137 mmol/L (136-145); WHITE BLOOD COUNT (AUTO) 10.1 K/uL (4.3-11.0)
[2023-06-17 06:01] LABS: CREATININE, URINE 49.6 MG/DL (30.0-125.0); URINE TOTAL PROTEIN 17.3 mg/dL (0-11.9)
[2023-06-17] MEDS: KETOROLAC TROMETHAMINE INJ 30 MG/ML VIAL IV PRN ×3 (06:25→19:55)
[2023-06-17] MEDS: ENSURE CLEAR 237 ML LIQUID (MIX BERRY) PO SCH ×2 (08:00→16:26)
[2023-06-17] MEDS: DOCUSATE SODIUM LIQ 100 MG/10 ML UDC PO SCH ×2 (08:06→16:26)
[2023-06-17] MEDS: POLYETHYLENE GLYCOL 3350 17 GM POWD.PACK PO SCH (08:07)
[2023-06-17] MEDS: FERROUS SULFATE (325 MG) 325 MG/TAB TABLET PO SCH ×2 (08:07→16:26)
[2023-06-17] MEDS: Magnesium 1GM/D5W 100ML PREMIX 100 ML IV SCH ×2 (08:16→09:19)
[2023-06-17] MEDS: CYCLOSPORINE EACHEYE SCH ×2 (11:00→23:00)
[2023-06-17 11:34] LABS: ALBUMIN 1.9 g/dL (3.4-5.0); BILIRUBIN,TOTAL 0.3 mg/dL (0.2-1.0); CALCIUM, SERUM 8.1 mg/dL (8.5-10.1); MAGNESIUM 2.5 mg/dL (1.8-2.4); PHOSPHORUS 2.5 mg/dL (2.5-4.9); POTASSIUM 3.7 mmol/L (3.5-5.1); TOTAL PROTEIN, SERUM 5.2 g/dL (6.4-8.2)
[2023-06-17] MEDS: SOD FERRIC GLUC 125 MG in IV NS 0.9% 100 ML IV SCH (14:52)
[2023-06-17] MEDS ORDERED: TPN BAG #8 IV SCH ×4 (16:00)
[2023-06-17] MEDS: LORAZEPAM INJ 2 MG/ML VIAL IV PRN (20:24)
[2023-06-17] MEDS: FAMOTIDINE/PF INJ 20 MG/2 ML VIAL IV SCH (22:21)
[2023-06-18] VITALS (25 sets, daily range): BP systolic 99–146; BP diastolic 52–78; TEMP 98.6–100.8; O2SAT 92–98
[2023-06-18] MEDS: BLOOD SUGAR DIAGNOSTIC 1 EACH STRIP IN SCH ×4 (00:28→17:24)
[2023-06-18] MEDS: MORPHINE SULFATE INJ 2 MG/ML DISP.SYRIN IV PRN ×5 (01:08→21:54)
[2023-06-18] MEDS ORDERED: TPN BAG #9 IV SCH ×3 (04:00)
[2023-06-18 05:06] LABS: BASOPHILS % (AUTO) 0.4 % (0.0-2.0); EOSINOPHILS # (AUTO) 0.4 K/uL (0.0-0.7); EOSINOPHILS % (AUTO) 5.4 % (0.0-6.0); HEMATOCRIT 25 % (33-45); HEMOGLOBIN 8.2 g/dL (11.5-14.8); LYMPHOCYTES # (AUTO) 0.9 K/uL (0.8-4.8); LYMPHOCYTES % (AUTO) 12.1 % (20.0-44.0); MEAN CORPUSCULAR HEMOGLOBIN 28 PG (26.0-33.0); MEAN CORPUSCULAR HGB CONC 32 g/dl (31.0-36.0); MEAN CORPUSCULAR VOLUME 86 fL (82-100); MONOCYTES # (AUTO) 0.7 K/uL (0.1-1.30); MONOCYTES % (AUTO) 10.3 % (2.0-12.0); NEUTROPHILS # (AUTO) 5.2 K/uL (1.8-8.9); NEUTROPHILS % (AUTO) 71.8 % (43.0-81.0); PLATELET COUNT (AUTO) 170 K/uL (150-450); RED BLOOD CELL COUNT(AUTO) 2.94 MIL/uL (4.0-5.2); RED CELL DISTRIBUTION WIDTH 12.9 % (11.5-15.0); WHITE BLOOD COUNT (AUTO) 7.3 K/uL (4.3-11.0)
[2023-06-18 05:21] LABS: CALCIUM, SERUM 7.7 mg/dL (8.5-10.1); CREATININE 0.8 mg/dL (0.6-1.3); MAGNESIUM 1.9 mg/dL (1.8-2.4); PHOSPHORUS 1.8 mg/dL (2.5-4.9); POTASSIUM 3.7 mmol/L (3.5-5.1)
[2023-06-18] MEDS: ENSURE CLEAR 237 ML LIQUID (MIX BERRY) PO SCH ×2 (08:00→17:00)
[2023-06-18] MEDS: DOCUSATE SODIUM LIQ 100 MG/10 ML UDC PO SCH ×2 (08:52→17:00)
[2023-06-18] MEDS: POLYETHYLENE GLYCOL 3350 17 GM POWD.PACK PO SCH (08:52)
[2023-06-18] MEDS: FERROUS SULFATE (325 MG) 325 MG/TAB TABLET PO SCH ×2 (08:52→17:00)
[2023-06-18] MEDS: IV LR 1000 ML 1,000 ML IV PRN (08:54)
[2023-06-18] MEDS: CYCLOSPORINE EACHEYE SCH ×2 (11:00→22:08)
[2023-06-18] MEDS: SOD FERRIC GLUC 125 MG in IV NS 0.9% 100 ML IV SCH (13:24)
[2023-06-18] MEDS: FAT EMULSION 20% 500 ML in PREMIX 1 EA IV SCH (13:24)
[2023-06-18] MEDS ORDERED: Sodium Phosphate 15 MMOL in IV NS 0.9% 245 ML IV SCH (14:00)
[2023-06-18 14:16] LABS: HEMOGLOBIN 8.8 g/dL (11.5-14.8)
[2023-06-18] MEDS ORDERED: TPN BAG #10 IV SCH ×4 (16:00)
[2023-06-18] MEDS: Magnesium 1GM/D5W 100ML PREMIX 100 ML IV SCH ×2 (16:20→17:24)
[2023-06-18] MEDS: FAMOTIDINE/PF INJ 20 MG/2 ML VIAL IV SCH (21:53)
[2023-06-19] VITALS (19 sets, daily range): BP systolic 117–138; BP diastolic 59–80; TEMP 97–99.9; O2SAT 95–97
[2023-06-19] MEDS: INSULIN REGULAR, HUMAN 100 UNIT/ML 3 ML VIAL SQ PRN ×3 (00:26→13:39)
[2023-06-19] MEDS: BLOOD SUGAR DIAGNOSTIC 1 EACH STRIP IN SCH ×5 (00:26→23:37)
[2023-06-19] MEDS: LORAZEPAM INJ 2 MG/ML VIAL IV PRN ×2 (03:13→20:55)
[2023-06-19] MEDS ORDERED: TPN BAG #11 IV SCH ×2 (04:00)
[2023-06-19 05:36] LABS: BASOPHILS % (AUTO) 0.6 % (0.0-2.0); EOSINOPHILS # (AUTO) 0.4 K/uL (0.0-0.7); EOSINOPHILS % (AUTO) 4.5 % (0.0-6.0); HEMATOCRIT 26 % (33-45); HEMOGLOBIN 8.5 g/dL (11.5-14.8); LYMPHOCYTES # (AUTO) 0.7 K/uL (0.8-4.8); LYMPHOCYTES % (AUTO) 9.4 % (20.0-44.0); MEAN CORPUSCULAR HEMOGLOBIN 28 PG (26.0-33.0); MEAN CORPUSCULAR HGB CONC 33 g/dl (31.0-36.0); MEAN CORPUSCULAR VOLUME 86 fL (82-100); MONOCYTES # (AUTO) 0.7 K/uL (0.1-1.30); MONOCYTES % (AUTO) 9.4 % (2.0-12.0); NEUTROPHILS % (AUTO) 76.1 % (43.0-81.0); PLATELET COUNT (AUTO) 179 K/uL (150-450); RED CELL DISTRIBUTION WIDTH 12.7 % (11.5-15.0); WHITE BLOOD COUNT (AUTO) 7.8 K/uL (4.3-11.0)
[2023-06-19 05:46] LABS: CALCIUM, SERUM 7.6 mg/dL (8.5-10.1); CREATININE 0.9 mg/dL (0.6-1.3); MAGNESIUM 1.9 mg/dL (1.8-2.4); PHOSPHORUS 2.8 mg/dL (2.5-4.9); POTASSIUM 2.9 mmol/L (3.5-5.1)
[2023-06-19] MEDS: ENSURE CLEAR 237 ML LIQUID (MIX BERRY) PO SCH ×2 (08:00→17:00)
[2023-06-19] MEDS: POLYETHYLENE GLYCOL 3350 17 GM POWD.PACK PO SCH (08:54)
[2023-06-19] MEDS: DOCUSATE SODIUM LIQ 100 MG/10 ML UDC PO SCH ×2 (08:54→18:39)
[2023-06-19] MEDS: FERROUS SULFATE (325 MG) 325 MG/TAB TABLET PO SCH ×2 (08:54→18:39)
[2023-06-19] MEDS: POTASSIUM CL. PREMIX PERIPHER. 50 ML IV SCH ×6 (09:52→18:40)
[2023-06-19] MEDS: CYCLOSPORINE EACHEYE SCH ×2 (11:00→23:00)
[2023-06-19] MEDS: SIMETHICONE/SOD BICARB/CIT AC 1 EACH GRAN.EF.PK PO SCH ×3 (11:27→18:40)
[2023-06-19] MEDS ORDERED: Magnesium 1GM/D5W 100ML PREMIX 100 ML IV SCH (14:00)
[2023-06-19] MEDS: SOD FERRIC GLUC 125 MG in IV NS 0.9% 100 ML IV SCH (15:30)
[2023-06-19] MEDS ORDERED: TPN BAG #12 IV SCH ×4 (16:00)
[2023-06-19] MEDS: KETOROLAC TROMETHAMINE INJ 30 MG/ML VIAL IV PRN (20:55)
[2023-06-19] MEDS: FAMOTIDINE/PF INJ 20 MG/2 ML VIAL IV SCH (20:56)
[2023-06-19] MEDS: ACETAMINOPHEN 325 MG TABLET PO PRN (20:56)
[2023-06-19] MEDS: PROCHLORPERAZINE EDISYLATE 10 MG/2 ML VIAL IVP PRN (21:55)
[2023-06-20] VITALS: BP 104/60; TEMP 98.5; O2SAT 94
[2023-06-20] MEDS ORDERED: TPN BAG #3 IV SCH ×3 (02:08)
[2023-06-20 04:00] VITALS: BP 111/64; TEMP 99; O2SAT 96
[2023-06-20 05:27] LABS: CALCIUM, SERUM 8.4 mg/dL (8.5-10.1); CREATININE 0.9 mg/dL (0.6-1.3); MAGNESIUM 2.2 mg/dL (1.8-2.4); PHOSPHORUS 2.1 mg/dL (2.5-4.9); POTASSIUM 3.3 mmol/L (3.5-5.1)
[2023-06-20 05:33] LABS: BASOPHILS % (AUTO) 0.3 % (0.0-2.0); EOSINOPHILS # (AUTO) 0.2 K/uL (0.0-0.7); HEMATOCRIT 26 % (33-45); HEMOGLOBIN 8.7 g/dL (11.5-14.8); LYMPHOCYTES # (AUTO) 0.9 K/uL (0.8-4.8); LYMPHOCYTES % (AUTO) 10.9 % (20.0-44.0); MEAN CORPUSCULAR HEMOGLOBIN 28 PG (26.0-33.0); MEAN CORPUSCULAR HGB CONC 33 g/dl (31.0-36.0); MEAN CORPUSCULAR VOLUME 85 fL (82-100); MONOCYTES # (AUTO) 0.7 K/uL (0.1-1.30); MONOCYTES % (AUTO) 8.5 % (2.0-12.0); NEUTROPHILS # (AUTO) 6.1 K/uL (1.8-8.9); NEUTROPHILS % (AUTO) 77.3 % (43.0-81.0); PLATELET COUNT (AUTO) 200 K/uL (150-450); RED BLOOD CELL COUNT(AUTO) 3.05 MIL/uL (4.0-5.2); RED CELL DISTRIBUTION WIDTH 12.8 % (11.5-15.0); WHITE BLOOD COUNT (AUTO) 7.8 K/uL (4.3-11.0)
[2023-06-20] MEDS: BLOOD SUGAR DIAGNOSTIC 1 EACH STRIP IN SCH ×4 (05:46→23:41)
[2023-06-20 08:00] VITALS: BP 116/67; O2SAT 96
[2023-06-20] MEDS: ENSURE CLEAR 237 ML LIQUID (MIX BERRY) PO SCH ×2 (08:00→17:00)
[2023-06-20] MEDS: FERROUS SULFATE (325 MG) 325 MG/TAB TABLET PO SCH ×2 (08:27→17:00)
[2023-06-20] MEDS: SIMETHICONE/SOD BICARB/CIT AC 1 EACH GRAN.EF.PK PO SCH ×3 (09:00→17:00)
[2023-06-20] MEDS: POTASSIUM PHOSPHATE MM 7.5 MMOL in IV NS 0.9% 100 ML IV SCH ×2 (09:05→12:09)
[2023-06-20] MEDS: POLYETHYLENE GLYCOL 3350 17 GM POWD.PACK PO SCH (09:06)
[2023-06-20] MEDS: DOCUSATE SODIUM LIQ 100 MG/10 ML UDC PO SCH ×2 (09:06→17:00)
[2023-06-20] MEDS: CYCLOSPORINE EACHEYE SCH ×2 (11:25→22:38)
[2023-06-20 12:00] VITALS: BP 108/64; TEMP 97.7; O2SAT 98
[2023-06-20] MEDS ORDERED: TPN BAG #14 IV SCH ×4 (12:26)
[2023-06-20] MEDS: FAT EMULSION 20% 500 ML in PREMIX 1 EA IV SCH (13:48)
[2023-06-20] MEDS: ACETAMINOPHEN 325 MG TABLET PO PRN (15:59)
[2023-06-20 16:00] VITALS: BP 128/69; TEMP 100.1; O2SAT 97
[2023-06-20] MEDS: INSULIN REGULAR, HUMAN 100 UNIT/ML 3 ML VIAL SQ PRN ×2 (17:55→23:41)
[2023-06-20] MEDS: SOD FERRIC GLUC 125 MG in IV NS 0.9% 100 ML IV SCH (17:56)
[2023-06-20 20:00] VITALS: BP 123/68; TEMP 98.7; O2SAT 97
[2023-06-20] MEDS: LORAZEPAM INJ 2 MG/ML VIAL IV PRN (20:36)
[2023-06-20] MEDS: POTASSIUM CL. PREMIX PERIPHER. 50 ML IV SCH ×2 (20:49→21:47)
[2023-06-20] MEDS: FAMOTIDINE (20 MG) 20 MG TABLET PO SCH (21:47)
[2023-06-20] MEDS ORDERED: TPN BAG #15 IV SCH ×4 (22:34)
[2023-06-21] VITALS: BP 132/78; TEMP 100.5; O2SAT 96
[2023-06-21] MEDS ORDERED: diphenhydrAMINE HCL 50 MG/ML VIAL IV ONE (00:30)
[2023-06-21] MEDS: ACETAMINOPHEN 325 MG TABLET PO PRN ×3 (00:54→23:59)
[2023-06-21 04:00] VITALS: BP 103/60; TEMP 98.7; O2SAT 94
[2023-06-21 05:30] LABS: CALCIUM, SERUM 8.4 mg/dL (8.5-10.1); PHOSPHORUS 2.6 mg/dL (2.5-4.9)
[2023-06-21] MEDS: BLOOD SUGAR DIAGNOSTIC 1 EACH STRIP IN SCH ×4 (06:10→23:10)
[2023-06-21] MEDS: INSULIN REGULAR, HUMAN 100 UNIT/ML 3 ML VIAL SQ PRN (06:10)
[2023-06-21 08:00] VITALS: BP 123/73; TEMP 98.6; O2SAT 97
[2023-06-21] MEDS: POTASSIUM CL. PREMIX PERIPHER. 50 ML IV SCH ×6 (08:32→15:24)
[2023-06-21] MEDS: ENSURE CLEAR 237 ML LIQUID (MIX BERRY) PO SCH ×2 (08:32→17:04)
[2023-06-21] MEDS: POLYETHYLENE GLYCOL 3350 17 GM POWD.PACK PO SCH (08:33)
[2023-06-21] MEDS: DOCUSATE SODIUM LIQ 100 MG/10 ML UDC PO SCH ×2 (08:33→17:00)
[2023-06-21] MEDS: FERROUS SULFATE (325 MG) 325 MG/TAB TABLET PO SCH ×2 (08:33→17:04)
[2023-06-21] MEDS: SIMETHICONE/SOD BICARB/CIT AC 1 EACH GRAN.EF.PK PO SCH ×3 (08:34→17:00)
[2023-06-21] MEDS: MENTHOL/CETYLPYRD (CEPACOL) 1 LOZ LOZENGE PO PRN (08:34)
[2023-06-21 08:36] LABS: BASOPHILS # (AUTO) 0.1 K/uL (0.0-0.2); BASOPHILS % (AUTO) 0.8 % (0.0-2.0); EOSINOPHILS # (AUTO) 0.4 K/uL (0.0-0.7); EOSINOPHILS % (AUTO) 4.1 % (0.0-6.0); HEMATOCRIT 26 % (33-45); HEMOGLOBIN 8.5 g/dL (11.5-14.8); LYMPHOCYTES # (AUTO) 0.9 K/uL (0.8-4.8); LYMPHOCYTES % (AUTO) 8.4 % (20.0-44.0); MEAN CORPUSCULAR HEMOGLOBIN 28 PG (26.0-33.0); MEAN CORPUSCULAR HGB CONC 33 g/dl (31.0-36.0); MEAN CORPUSCULAR VOLUME 86 fL (82-100); MONOCYTES # (AUTO) 1.1 K/uL (0.1-1.30); MONOCYTES % (AUTO) 9.6 % (2.0-12.0); NEUTROPHILS # (AUTO) 8.4 K/uL (1.8-8.9); NEUTROPHILS % (AUTO) 77.1 % (43.0-81.0); PLATELET COUNT (AUTO) 190 K/uL (150-450); RED BLOOD CELL COUNT(AUTO) 2.99 MIL/uL (4.0-5.2); RED CELL DISTRIBUTION WIDTH 12.9 % (11.5-15.0); WHITE BLOOD COUNT (AUTO) 10.9 K/uL (4.3-11.0)
[2023-06-21] MEDS ORDERED: TPN BAG #16 IV SCH ×4 (08:42)
[2023-06-21] MEDS: CYCLOSPORINE EACHEYE SCH ×2 (11:13→22:13)
[2023-06-21 12:00] VITALS: BP 127/73; TEMP 99; O2SAT 97
[2023-06-21] MEDS: SOD FERRIC GLUC 125 MG in IV NS 0.9% 100 ML IV SCH (15:23)
[2023-06-21 16:00] VITALS: BP 120/69; TEMP 98.8; O2SAT 97
[2023-06-21] MEDS ORDERED: TPN BAG #17 IV SCH ×4 (19:00)
[2023-06-21 20:00] VITALS: BP 122/78; TEMP 99.2; O2SAT 99
[2023-06-21] MEDS: FAMOTIDINE (20 MG) 20 MG TABLET PO SCH (21:09)
[2023-06-21] MEDS: MORPHINE SULFATE INJ 2 MG/ML DISP.SYRIN IV PRN (22:16)
[2023-06-22] VITALS: BP 115/71; TEMP 101.3; O2SAT 100
[2023-06-22] MEDS: LORAZEPAM INJ 2 MG/ML VIAL IV PRN ×2 (01:07→21:56)
[2023-06-22 04:00] VITALS: BP 108/64; TEMP 98.2; O2SAT 96
[2023-06-22 05:51] LABS: BASOPHILS # (AUTO) 0.1 K/uL (0.0-0.2); BASOPHILS % (AUTO) 0.5 % (0.0-2.0); EOSINOPHILS # (AUTO) 0.5 K/uL (0.0-0.7); EOSINOPHILS % (AUTO) 4.7 % (0.0-6.0); HEMATOCRIT 27 % (33-45); HEMOGLOBIN 8.8 g/dL (11.5-14.8); LYMPHOCYTES # (AUTO) 1.1 K/uL (0.8-4.8); LYMPHOCYTES % (AUTO) 11.1 % (20.0-44.0); MEAN CORPUSCULAR HEMOGLOBIN 28 PG (26.0-33.0); MEAN CORPUSCULAR HGB CONC 33 g/dl (31.0-36.0); MEAN CORPUSCULAR VOLUME 85 fL (82-100); NEUTROPHILS # (AUTO) 7.4 K/uL (1.8-8.9); NEUTROPHILS % (AUTO) 73.7 % (43.0-81.0); PLATELET COUNT (AUTO) 229 K/uL (150-450); RED BLOOD CELL COUNT(AUTO) 3.18 MIL/uL (4.0-5.2); RED CELL DISTRIBUTION WIDTH 12.8 % (11.5-15.0)
[2023-06-22 06:21] LABS: BILIRUBIN,TOTAL 0.5 mg/dL (0.2-1.0); CALCIUM, SERUM 8.7 mg/dL (8.5-10.1); MAGNESIUM 1.9 mg/dL (1.8-2.4); POTASSIUM 3.6 mmol/L (3.5-5.1); TOTAL PROTEIN, SERUM 6.4 g/dL (6.4-8.2)
[2023-06-22] MEDS: BLOOD SUGAR DIAGNOSTIC 1 EACH STRIP IN SCH ×3 (06:22→17:00)
[2023-06-22] MEDS ORDERED: TPN BAG #18 IV SCH ×4 (07:40)
[2023-06-22 08:00] VITALS: BP 120/77; TEMP 98.8; O2SAT 98
[2023-06-22] MEDS: ENSURE CLEAR 237 ML LIQUID (MIX BERRY) PO SCH (08:46)
[2023-06-22] MEDS: FERROUS SULFATE (325 MG) 325 MG/TAB TABLET PO SCH ×2 (08:50→16:49)
[2023-06-22] MEDS: SIMETHICONE/SOD BICARB/CIT AC 1 EACH GRAN.EF.PK PO SCH ×3 (08:54→16:50)
[2023-06-22] MEDS: DOCUSATE SODIUM LIQ 100 MG/10 ML UDC PO SCH (08:54)
[2023-06-22] MEDS: POLYETHYLENE GLYCOL 3350 17 GM POWD.PACK PO SCH (08:54)
[2023-06-22 12:00] VITALS: BP 117/75; TEMP 98.9; O2SAT 99
[2023-06-22] MEDS: CYCLOSPORINE EACHEYE SCH ×2 (12:05→21:44)
[2023-06-22] MEDS: FAT EMULSION 20% 500 ML in PREMIX 1 EA IV SCH (14:27)
[2023-06-22] MEDS: CEFEPIME 1 GM in IV D5W 50 ML IV SCH ×2 (15:29→21:25)
[2023-06-22 16:00] VITALS: BP 123/77; TEMP 99.1; O2SAT 99
[2023-06-22] MEDS: DOCUSATE SODIUM 100 MG CAPSULE PO SCH (16:49)
[2023-06-22] MEDS: ACETAMINOPHEN 325 MG TABLET PO PRN (16:49)
[2023-06-22 16:50] LABS: APPEARANCE,URINE CLEAR (CLEAR); BILIRUBIN,URINE NEGATIVE (NEGATIVE); BLOOD, URINE 2+ Ery/uL (NEGATIVE); COLOR,URINE YELLOW (YELLOW); KETONES,URINE NEGATIVE (NEGATIVE); LEUKOCYTE ESTERASE ,URINE 1+ (NEGATIVE); NITRITE, URINE NEGATIVE (NEGATIVE); PH,URINE 5.5 (5.0-8.0); PROTEIN,URINE NEGATIVE (NEGATIVE); UGLUCOSE NEGATIVE (NEGATIVE); UROBILINOGEN,URINE 0.2 EU/dL (0.2)
[2023-06-22] MEDS: INSULIN REGULAR, HUMAN 100 UNIT/ML 3 ML VIAL SQ PRN (17:01)
[2023-06-22 17:50] LABS: ADD URINE CULTURE YES; BACTERIA,URINE 1+ /HPF (None Seen); RBC,URINE 21-50 /HPF (0-2); SQUAMOUS EPITHELIAL CELL,UR 0-2 /HPF (None Seen)
[2023-06-22 17:51] LABS: YEAST,URINE Few /HPF (None Seen)
[2023-06-22 20:00] VITALS: BP 119/78; TEMP 99; O2SAT 97
[2023-06-22] MEDS ORDERED: TPN BAG #19 IV SCH ×4 (21:00)
[2023-06-22] MEDS: FAMOTIDINE (20 MG) 20 MG TABLET PO SCH (21:25)
[2023-06-23] MEDS: BLOOD SUGAR DIAGNOSTIC 1 EACH STRIP IN SCH ×4 (00:53→17:44)
[2023-06-23 01:08] VITALS: BP 101/73; TEMP 99.2; O2SAT 96
[2023-06-23] MEDS: CEFEPIME 1 GM in IV D5W 50 ML IV SCH ×3 (04:50→20:39)
[2023-06-23 06:00] VITALS: BP 112/71; TEMP 98.4; O2SAT 96
[2023-06-23 07:18] LABS: BASOPHILS % (AUTO) 0.2 % (0.0-2.0); EOSINOPHILS # (AUTO) 0.5 K/uL (0.0-0.7); EOSINOPHILS % (AUTO) 4.6 % (0.0-6.0); HEMATOCRIT 30 % (33-45); HEMOGLOBIN 9.7 g/dL (11.5-14.8); LYMPHOCYTES # (AUTO) 0.5 K/uL (0.8-4.8); LYMPHOCYTES % (AUTO) 5.2 % (20.0-44.0); MEAN CORPUSCULAR HEMOGLOBIN 29 PG (26.0-33.0); MEAN CORPUSCULAR HGB CONC 33 g/dl (31.0-36.0); MEAN CORPUSCULAR VOLUME 86 fL (82-100); MONOCYTES # (AUTO) 0.7 K/uL (0.1-1.30); MONOCYTES % (AUTO) 7.1 % (2.0-12.0); NEUTROPHILS # (AUTO) 8.6 K/uL (1.8-8.9); NEUTROPHILS % (AUTO) 82.9 % (43.0-81.0); PLATELET COUNT (AUTO) 247 K/uL (150-450); RED BLOOD CELL COUNT(AUTO) 3.41 MIL/uL (4.0-5.2); RED CELL DISTRIBUTION WIDTH 13.5 % (11.5-15.0); WHITE BLOOD COUNT (AUTO) 10.4 K/uL (4.3-11.0)
[2023-06-23 07:35] LABS: ALBUMIN 2.1 g/dL (3.4-5.0); BILIRUBIN,TOTAL 0.4 mg/dL (0.2-1.0); CALCIUM, SERUM 8.8 mg/dL (8.5-10.1); MAGNESIUM 1.8 mg/dL (1.8-2.4); PHOSPHORUS 2.8 mg/dL (2.5-4.9); POTASSIUM 3.5 mmol/L (3.5-5.1); TOTAL PROTEIN, SERUM 6.7 g/dL (6.4-8.2)
[2023-06-23 08:00] VITALS: BP 120/80; TEMP 99; O2SAT 97
[2023-06-23] MEDS: POLYETHYLENE GLYCOL 3350 17 GM POWD.PACK PO SCH (09:00)
[2023-06-23] MEDS: DOCUSATE SODIUM 100 MG CAPSULE PO SCH ×2 (09:00→16:21)
[2023-06-23] MEDS ORDERED: TPN BAG #20 IV SCH ×4 (09:40)
[2023-06-23] MEDS: ONDANSETRON HCL/PF 4 MG/2 ML VIAL IV PRN (09:47)
[2023-06-23] MEDS: SIMETHICONE/SOD BICARB/CIT AC 1 EACH GRAN.EF.PK PO SCH ×3 (09:55→16:38)
[2023-06-23] MEDS: FERROUS SULFATE (325 MG) 325 MG/TAB TABLET PO SCH ×2 (09:56→16:38)
[2023-06-23] MEDS: CYCLOSPORINE EACHEYE SCH ×2 (11:27→21:50)
[2023-06-23 12:00] VITALS: BP 110/80; TEMP 98.6; O2SAT 96
[2023-06-23 16:00] VITALS: BP 116/74; TEMP 98.1; O2SAT 98
[2023-06-23] MEDS: ACETAMINOPHEN 325 MG TABLET PO PRN (16:48)
[2023-06-23] MEDS ORDERED: TPN BAG #21 IV SCH ×4 (19:00)
[2023-06-23 20:00] VITALS: BP 109/68; TEMP 98.2; O2SAT 98
[2023-06-23] MEDS: FAMOTIDINE (20 MG) 20 MG TABLET PO SCH (21:49)
[2023-06-23] MEDS: LORAZEPAM INJ 2 MG/ML VIAL IV PRN (21:49)
[2023-06-24] VITALS: BP 99/61; TEMP 98.1; O2SAT 97
[2023-06-24] MEDS: BLOOD SUGAR DIAGNOSTIC 1 EACH STRIP IN SCH ×4 (00:02→17:44)
[2023-06-24 04:00] VITALS: BP 110/62; TEMP 98.8; O2SAT 98
[2023-06-24] MEDS: CEFEPIME 1 GM in IV D5W 50 ML IV SCH ×3 (04:51→21:59)
[2023-06-24 06:52] LABS: BASOPHILS % (AUTO) 0.5 % (0.0-2.0); EOSINOPHILS # (AUTO) 0.6 K/uL (0.0-0.7); EOSINOPHILS % (AUTO) 6.7 % (0.0-6.0); HEMATOCRIT 28 % (33-45); HEMOGLOBIN 9.2 g/dL (11.5-14.8); LYMPHOCYTES # (AUTO) 0.6 K/uL (0.8-4.8); LYMPHOCYTES % (AUTO) 6.6 % (20.0-44.0); MEAN CORPUSCULAR HEMOGLOBIN 28 PG (26.0-33.0); MEAN CORPUSCULAR HGB CONC 33 g/dl (31.0-36.0); MEAN CORPUSCULAR VOLUME 86 fL (82-100); MONOCYTES # (AUTO) 0.6 K/uL (0.1-1.30); MONOCYTES % (AUTO) 7.5 % (2.0-12.0); NEUTROPHILS # (AUTO) 6.7 K/uL (1.8-8.9); NEUTROPHILS % (AUTO) 78.7 % (43.0-81.0); PLATELET COUNT (AUTO) 245 K/uL (150-450); RED BLOOD CELL COUNT(AUTO) 3.29 MIL/uL (4.0-5.2); RED CELL DISTRIBUTION WIDTH 13.2 % (11.5-15.0); WHITE BLOOD COUNT (AUTO) 8.6 K/uL (4.3-11.0)
[2023-06-24] MEDS ORDERED: TPN BAG #22 IV SCH ×4 (06:59)
[2023-06-24 07:03] LABS: CALCIUM, SERUM 8.5 mg/dL (8.5-10.1); MAGNESIUM 1.7 mg/dL (1.8-2.4); PHOSPHORUS 3.1 mg/dL (2.5-4.9); POTASSIUM 3.4 mmol/L (3.5-5.1)
[2023-06-24 08:00] VITALS: BP 113/71; TEMP 98.2; O2SAT 99
[2023-06-24] MEDS: DOCUSATE SODIUM 100 MG CAPSULE PO SCH ×3 (09:00→17:00)
[2023-06-24] MEDS: FERROUS SULFATE (325 MG) 325 MG/TAB TABLET PO SCH ×2 (09:01→17:44)
[2023-06-24] MEDS: SIMETHICONE/SOD BICARB/CIT AC 1 EACH GRAN.EF.PK PO SCH ×3 (09:01→17:44)
[2023-06-24] MEDS: POLYETHYLENE GLYCOL 3350 17 GM POWD.PACK PO SCH (09:01)
[2023-06-24] MEDS: CYCLOSPORINE EACHEYE SCH ×2 (11:37→23:41)
[2023-06-24 12:00] VITALS: BP 112/75; TEMP 98; O2SAT 98
[2023-06-24] MEDS: Magnesium 1GM/D5W 100ML PREMIX 100 ML IV SCH ×2 (12:28→13:47)
[2023-06-24] MEDS: FAT EMULSION 20% 500 ML in PREMIX 1 EA IV SCH (15:56)
[2023-06-24 16:00] VITALS: BP 107/69; TEMP 98.6; O2SAT 97
[2023-06-24] MEDS ORDERED: TPN BAG #23 IV SCH ×4 (19:30)
[2023-06-24 20:00] VITALS: BP 110/67; TEMP 99; O2SAT 98
[2023-06-24] MEDS: FAMOTIDINE (20 MG) 20 MG TABLET PO SCH (21:59)
[2023-06-24] MEDS: LORAZEPAM INJ 2 MG/ML VIAL IV PRN (22:06)
[2023-06-25] VITALS: BP 115/67; TEMP 97.3; O2SAT 98
[2023-06-25 04:00] VITALS: BP 103/64; TEMP 99; O2SAT 98
[2023-06-25] MEDS: CEFEPIME 1 GM in IV D5W 50 ML IV SCH ×3 (05:16→20:54)
[2023-06-25] MEDS: BLOOD SUGAR DIAGNOSTIC 1 EACH STRIP IN SCH ×4 (06:00→18:02)
[2023-06-25 06:50] LABS: BASOPHILS % (AUTO) 0.4 % (0.0-2.0); EOSINOPHILS # (AUTO) 0.6 K/uL (0.0-0.7); EOSINOPHILS % (AUTO) 6.2 % (0.0-6.0); HEMATOCRIT 28 % (33-45); HEMOGLOBIN 9.2 g/dL (11.5-14.8); LYMPHOCYTES # (AUTO) 0.7 K/uL (0.8-4.8); LYMPHOCYTES % (AUTO) 7.5 % (20.0-44.0); MEAN CORPUSCULAR HEMOGLOBIN 28 PG (26.0-33.0); MEAN CORPUSCULAR HGB CONC 33 g/dl (31.0-36.0); MEAN CORPUSCULAR VOLUME 87 fL (82-100); MONOCYTES # (AUTO) 0.7 K/uL (0.1-1.30); MONOCYTES % (AUTO) 7.8 % (2.0-12.0); NEUTROPHILS # (AUTO) 7.4 K/uL (1.8-8.9); NEUTROPHILS % (AUTO) 78.1 % (43.0-81.0); PLATELET COUNT (AUTO) 247 K/uL (150-450); RED BLOOD CELL COUNT(AUTO) 3.25 MIL/uL (4.0-5.2); RED CELL DISTRIBUTION WIDTH 13.5 % (11.5-15.0); WHITE BLOOD COUNT (AUTO) 9.5 K/uL (4.3-11.0)
[2023-06-25 06:56] LABS: ALBUMIN 2.1 g/dL (3.4-5.0); BILIRUBIN,TOTAL 0.3 mg/dL (0.2-1.0); CALCIUM, SERUM 8.4 mg/dL (8.5-10.1); POTASSIUM 3.2 mmol/L (3.5-5.1); TOTAL PROTEIN, SERUM 6.6 g/dL (6.4-8.2)
[2023-06-25] MEDS ORDERED: TPN BAG #24 IV SCH ×4 (07:29)
[2023-06-25 08:00] VITALS: BP 103/60; TEMP 99.1; O2SAT 98
[2023-06-25] MEDS: DOCUSATE SODIUM 100 MG CAPSULE PO SCH ×2 (09:29→17:22)
[2023-06-25] MEDS: FERROUS SULFATE (325 MG) 325 MG/TAB TABLET PO SCH ×2 (09:30→17:22)
[2023-06-25] MEDS: POLYETHYLENE GLYCOL 3350 17 GM POWD.PACK PO SCH (09:30)
[2023-06-25] MEDS: POTASSIUM CHLORIDE 20 MEQ TAB.PRT.SR PO SCH ×2 (09:31→09:34)
[2023-06-25] MEDS: SIMETHICONE/SOD BICARB/CIT AC 1 EACH GRAN.EF.PK PO SCH ×3 (09:35→17:22)
[2023-06-25] MEDS: ONDANSETRON HCL/PF 4 MG/2 ML VIAL IV PRN ×3 (09:58→22:08)
[2023-06-25] MEDS: CYCLOSPORINE EACHEYE SCH ×2 (11:55→22:08)
[2023-06-25 12:00] VITALS: BP 134/75; TEMP 98.1; O2SAT 99
[2023-06-25] MEDS: INSULIN REGULAR, HUMAN 100 UNIT/ML 3 ML VIAL SQ PRN ×2 (12:11→18:02)
[2023-06-25 16:00] VITALS: BP 98/69; TEMP 99.1; O2SAT 99
[2023-06-25 20:00] VITALS: BP 115/66; TEMP 98.6; O2SAT 98
[2023-06-25] MEDS ORDERED: TPN BAG #25 IV SCH ×4 (20:00)
[2023-06-25] MEDS: FAMOTIDINE (20 MG) 20 MG TABLET PO SCH (22:00)
[2023-06-26] VITALS: BP 115/66; TEMP 98.6; O2SAT 97
[2023-06-26] MEDS: BLOOD SUGAR DIAGNOSTIC 1 EACH STRIP IN SCH ×4 (00:08→19:26)
[2023-06-26 04:00] VITALS: BP 95/55; TEMP 99.3; O2SAT 98
[2023-06-26] MEDS: CEFEPIME 1 GM in IV D5W 50 ML IV SCH ×3 (04:47→21:31)
[2023-06-26 06:16] LABS: BASOPHILS % (AUTO) 0.6 % (0.0-2.0); EOSINOPHILS # (AUTO) 0.4 K/uL (0.0-0.7); EOSINOPHILS % (AUTO) 4.8 % (0.0-6.0); HEMATOCRIT 26 % (33-45); HEMOGLOBIN 8.5 g/dL (11.5-14.8); LYMPHOCYTES # (AUTO) 0.8 K/uL (0.8-4.8); MEAN CORPUSCULAR HEMOGLOBIN 28 PG (26.0-33.0); MEAN CORPUSCULAR HGB CONC 32 g/dl (31.0-36.0); MEAN CORPUSCULAR VOLUME 88 fL (82-100); MONOCYTES # (AUTO) 0.6 K/uL (0.1-1.30); MONOCYTES % (AUTO) 6.5 % (2.0-12.0); NEUTROPHILS # (AUTO) 6.8 K/uL (1.8-8.9); NEUTROPHILS % (AUTO) 79.1 % (43.0-81.0); PLATELET COUNT (AUTO) 220 K/uL (150-450); RED BLOOD CELL COUNT(AUTO) 2.98 MIL/uL (4.0-5.2); RED CELL DISTRIBUTION WIDTH 13.8 % (11.5-15.0); WHITE BLOOD COUNT (AUTO) 8.6 K/uL (4.3-11.0)
[2023-06-26 06:26] LABS: BILIRUBIN,TOTAL 0.3 mg/dL (0.2-1.0); CALCIUM, SERUM 8.5 mg/dL (8.5-10.1); MAGNESIUM 2.2 mg/dL (1.8-2.4); PHOSPHORUS 2.3 mg/dL (2.5-4.9); POTASSIUM 3.4 mmol/L (3.5-5.1); TOTAL PROTEIN, SERUM 6.4 g/dL (6.4-8.2)
[2023-06-26 08:00] VITALS: BP 96/52; TEMP 98.2; O2SAT 98
[2023-06-26] MEDS ORDERED: TPN BAG #26 IV SCH ×4 (08:00)
[2023-06-26] MEDS: POTASSIUM CHLORIDE 20 MEQ TAB.PRT.SR PO SCH (08:18)
[2023-06-26] MEDS: POLYETHYLENE GLYCOL 3350 17 GM POWD.PACK PO SCH (08:18)
[2023-06-26] MEDS: FERROUS SULFATE (325 MG) 325 MG/TAB TABLET PO SCH ×2 (08:19→16:41)
[2023-06-26] MEDS: DOCUSATE SODIUM 100 MG CAPSULE PO SCH ×3 (08:19→16:47)
[2023-06-26] MEDS: SIMETHICONE/SOD BICARB/CIT AC 1 EACH GRAN.EF.PK PO SCH ×3 (09:00→16:47)
[2023-06-26] MEDS: ONDANSETRON HCL/PF 4 MG/2 ML VIAL IV PRN ×2 (09:10→16:48)
[2023-06-26 11:41] LABS: EOSINOPHILS % (MANUAL) 3 % (0-4); LYMPHOCYTES % (MANUAL) 9 % (16-48); MONOCYTES % (MANUAL) 1 % (0-11.0); NEUTROPHILS % (MANUAL) 87 (42-76); PLATELET ESTIMATE ADEQUATE
[2023-06-26] MEDS ORDERED: DIATR MEGLU/DIATRIZOATE SODIUM 120 ML BOTTLE (GASTROGRAPHIN) ONE (11:42)
[2023-06-26] MEDS ORDERED: SIMETHICONE/SOD BICARB/CIT AC 1 EACH GRAN.EF.PK PO ONE (11:44)
[2023-06-26 12:00] VITALS: BP 98/58; TEMP 98.5; O2SAT 98
[2023-06-26] MEDS: CYCLOSPORINE EACHEYE SCH ×2 (12:03→22:02)
[2023-06-26] MEDS ORDERED: Sodium Phosphate 15 MMOL in IV NS 0.9% 245 ML IV ONE (13:00)
[2023-06-26] MEDS: FAT EMULSION 20% 500 ML in PREMIX 1 EA IV SCH (15:25)
[2023-06-26 16:00] VITALS: BP 99/60; TEMP 99.1; O2SAT 98
[2023-06-26] MEDS ORDERED: TPN BAG #27 IV SCH ×4 (19:59)
[2023-06-26 20:00] VITALS: BP 114/66; TEMP 98.4; O2SAT 99
[2023-06-26] MEDS: LORAZEPAM INJ 2 MG/ML VIAL IV PRN (21:31)
[2023-06-26] MEDS: FAMOTIDINE (20 MG) 20 MG TABLET PO SCH (21:31)
[2023-06-27] VITALS: BP 110/64; TEMP 98.6; O2SAT 98
[2023-06-27 04:00] VITALS: BP 124/67; TEMP 99; O2SAT 97
[2023-06-27] MEDS: CEFEPIME 1 GM in IV D5W 50 ML IV SCH (05:55)
[2023-06-27] MEDS: BLOOD SUGAR DIAGNOSTIC 1 EACH STRIP IN SCH ×4 (06:00→17:06)
[2023-06-27 07:33] LABS: BASOPHILS # (AUTO) 0.1 K/uL (0.0-0.2); BASOPHILS % (AUTO) 0.6 % (0.0-2.0); EOSINOPHILS # (AUTO) 0.5 K/uL (0.0-0.7); EOSINOPHILS % (AUTO) 4.8 % (0.0-6.0); HEMATOCRIT 25 % (33-45); HEMOGLOBIN 8.3 g/dL (11.5-14.8); LYMPHOCYTES # (AUTO) 0.8 K/uL (0.8-4.8); MEAN CORPUSCULAR HEMOGLOBIN 29 PG (26.0-33.0); MEAN CORPUSCULAR HGB CONC 33 g/dl (31.0-36.0); MEAN CORPUSCULAR VOLUME 87 fL (82-100); MONOCYTES # (AUTO) 0.6 K/uL (0.1-1.30); MONOCYTES % (AUTO) 5.3 % (2.0-12.0); NEUTROPHILS # (AUTO) 8.5 K/uL (1.8-8.9); NEUTROPHILS % (AUTO) 81.3 % (43.0-81.0); PLATELET COUNT (AUTO) 232 K/uL (150-450); RED BLOOD CELL COUNT(AUTO) 2.92 MIL/uL (4.0-5.2); RED CELL DISTRIBUTION WIDTH 13.6 % (11.5-15.0); WHITE BLOOD COUNT (AUTO) 10.4 K/uL (4.3-11.0)
[2023-06-27] MEDS ORDERED: TPN BAG #28 IV SCH ×4 (07:58)
[2023-06-27 07:59] LABS: BILIRUBIN,TOTAL 0.2 mg/dL (0.2-1.0); CALCIUM, SERUM 8.5 mg/dL (8.5-10.1); CREATININE 0.9 mg/dL (0.6-1.3); POTASSIUM 3.2 mmol/L (3.5-5.1); TOTAL PROTEIN, SERUM 6.4 g/dL (6.4-8.2)
[2023-06-27] MEDS: POLYETHYLENE GLYCOL 3350 17 GM POWD.PACK PO SCH (08:06)
[2023-06-27] MEDS: DOCUSATE SODIUM 100 MG CAPSULE PO SCH ×2 (08:07→17:00)
[2023-06-27] MEDS: SIMETHICONE/SOD BICARB/CIT AC 1 EACH GRAN.EF.PK PO SCH ×3 (08:07→17:00)
[2023-06-27] MEDS: FERROUS SULFATE (325 MG) 325 MG/TAB TABLET PO SCH (08:07)
[2023-06-27 09:15] VITALS: BP 110/66; TEMP 98.4; O2SAT 99
[2023-06-27] MEDS: CYCLOSPORINE EACHEYE SCH ×2 (11:10→23:50)
[2023-06-27] MEDS ORDERED: [UNRECOGNIZED DRUG - OTHER] IV SCH (11:30)
[2023-06-27] MEDS ORDERED: TPN ADDITIVES IV SCH (11:30)
[2023-06-27] MEDS ORDERED: SODIUM CHLORIDE IV SCH (11:30)
[2023-06-27] MEDS ORDERED: TRACE ELEMENTS IV SCH (11:30)
[2023-06-27] MEDS: POTASSIUM PHOSPHATE MM 7.5 MMOL in IV NS 0.9% 100 ML IV SCH ×2 (11:47→15:17)
[2023-06-27 12:00] VITALS: BP 108/73; TEMP 98.4; O2SAT 99
[2023-06-27 16:26] VITALS: BP 116/66; TEMP 98.4; O2SAT 99
[2023-06-27] MEDS: POTASSIUM CL. PREMIX PERIPHER. 50 ML IV SCH ×3 (17:11→20:08)
[2023-06-27] MEDS ORDERED: TPN BAG #29 IV SCH ×4 (19:58)
[2023-06-27 20:00] VITALS: BP 127/71; TEMP 99; O2SAT 100
[2023-06-27] MEDS: METOCLOPRAMIDE HCL 10 MG/2 ML VIAL IV SCH (20:54)
[2023-06-27] MEDS: LORAZEPAM INJ 2 MG/ML VIAL IV PRN (20:55)
[2023-06-27] MEDS: FAMOTIDINE (20 MG) 20 MG TABLET PO SCH (21:01)
[2023-06-28] VITALS: BP 117/66; TEMP 99; O2SAT 100
[2023-06-28] MEDS: BLOOD SUGAR DIAGNOSTIC 1 EACH STRIP IN SCH ×4 (00:02→17:17)
[2023-06-28] MEDS: INSULIN REGULAR, HUMAN 100 UNIT/ML 3 ML VIAL SQ PRN ×2 (00:03→05:51)
[2023-06-28 04:00] VITALS: BP 122/65; TEMP 99.5; O2SAT 97
[2023-06-28] MEDS: METOCLOPRAMIDE HCL 10 MG/2 ML VIAL IV SCH ×3 (05:39→21:38)
[2023-06-28 06:41] LABS: BASOPHILS % (AUTO) 0.4 % (0.0-2.0); EOSINOPHILS # (AUTO) 0.3 K/uL (0.0-0.7); EOSINOPHILS % (AUTO) 2.6 % (0.0-6.0); HEMATOCRIT 25 % (33-45); HEMOGLOBIN 8.2 g/dL (11.5-14.8); LYMPHOCYTES # (AUTO) 1.2 K/uL (0.8-4.8); LYMPHOCYTES % (AUTO) 10.4 % (20.0-44.0); MEAN CORPUSCULAR HEMOGLOBIN 28 PG (26.0-33.0); MEAN CORPUSCULAR HGB CONC 33 g/dl (31.0-36.0); MEAN CORPUSCULAR VOLUME 86 fL (82-100); MONOCYTES # (AUTO) 0.8 K/uL (0.1-1.30); MONOCYTES % (AUTO) 7.1 % (2.0-12.0); NEUTROPHILS # (AUTO) 8.9 K/uL (1.8-8.9); NEUTROPHILS % (AUTO) 79.5 % (43.0-81.0); PLATELET COUNT (AUTO) 238 K/uL (150-450); RED BLOOD CELL COUNT(AUTO) 2.92 MIL/uL (4.0-5.2); RED CELL DISTRIBUTION WIDTH 14.1 % (11.5-15.0); WHITE BLOOD COUNT (AUTO) 11.1 K/uL (4.3-11.0)
[2023-06-28 06:57] LABS: ALBUMIN 2.1 g/dL (3.4-5.0); BILIRUBIN,TOTAL 0.3 mg/dL (0.2-1.0); CALCIUM, SERUM 8.6 mg/dL (8.5-10.1); CREATININE 0.9 mg/dL (0.6-1.3); MAGNESIUM 1.8 mg/dL (1.8-2.4); PHOSPHORUS 2.1 mg/dL (2.5-4.9); POTASSIUM 3.1 mmol/L (3.5-5.1); TOTAL PROTEIN, SERUM 6.5 g/dL (6.4-8.2)
[2023-06-28 08:00] VITALS: BP 119/70; TEMP 98.8; O2SAT 98
[2023-06-28] MEDS: POTASSIUM CL. PREMIX PERIPHER. 50 ML IV SCH ×2 (08:30→09:41)
[2023-06-28] MEDS: POTASSIUM PHOSPHATE MM 7.5 MMOL in IV NS 0.9% 100 ML IV SCH ×4 (08:35→17:38)
[2023-06-28] MEDS: SIMETHICONE/SOD BICARB/CIT AC 1 EACH GRAN.EF.PK PO SCH ×3 (08:54→17:00)
[2023-06-28] MEDS: DOCUSATE SODIUM 100 MG CAPSULE PO SCH ×2 (08:54→17:00)
[2023-06-28] MEDS: POLYETHYLENE GLYCOL 3350 17 GM POWD.PACK PO SCH (08:54)
[2023-06-28] MEDS ORDERED: TPN BAG #30 IV SCH ×4 (08:58)
[2023-06-28] MEDS: CYCLOSPORINE EACHEYE SCH ×2 (11:12→22:13)
[2023-06-28 12:00] VITALS: BP 119/71; TEMP 98.4; O2SAT 99
[2023-06-28] MEDS: FAT EMULSION 20% 500 ML in PREMIX 1 EA IV SCH (13:35)
[2023-06-28 16:00] VITALS: BP 115/76; TEMP 99.1; O2SAT 98
[2023-06-28] MEDS: SUCRALFATE 1 G/10 ML UDC GT SCH ×2 (17:17→22:00)
[2023-06-28 20:00] VITALS: BP 121/73; TEMP 98.8; O2SAT 100
[2023-06-28] MEDS ORDERED: Magnesium 1GM/D5W 100ML PREMIX 100 ML IV SCH (20:00)
[2023-06-28] MEDS: LORAZEPAM INJ 2 MG/ML VIAL IV PRN (21:38)
[2023-06-28] MEDS ORDERED: TPN BAG #31 IV SCH ×8 (21:53)
[2023-06-28] MEDS: FAMOTIDINE (20 MG) 20 MG TABLET PO SCH (22:00)
[2023-06-29] VITALS: BP 117/80; TEMP 99.1; O2SAT 96
[2023-06-29] MEDS: BLOOD SUGAR DIAGNOSTIC 1 EACH STRIP IN SCH ×4 (00:08→17:34)
[2023-06-29] MEDS: ONDANSETRON HCL/PF 4 MG/2 ML VIAL IV PRN (00:08)
[2023-06-29] MEDS: INSULIN REGULAR, HUMAN 100 UNIT/ML 3 ML VIAL SQ PRN ×2 (00:09→06:02)
[2023-06-29 04:00] VITALS: BP 118/65; TEMP 97.7; O2SAT 100
[2023-06-29] MEDS: METOCLOPRAMIDE HCL 10 MG/2 ML VIAL IV SCH (05:56)
[2023-06-29 05:58] LABS: BASOPHILS # (AUTO) 0.1 K/uL (0.0-0.2); BASOPHILS % (AUTO) 0.8 % (0.0-2.0); EOSINOPHILS # (AUTO) 0.3 K/uL (0.0-0.7); EOSINOPHILS % (AUTO) 2.6 % (0.0-6.0); HEMATOCRIT 25 % (33-45); HEMOGLOBIN 8.2 g/dL (11.5-14.8); LYMPHOCYTES # (AUTO) 0.8 K/uL (0.8-4.8); LYMPHOCYTES % (AUTO) 8.5 % (20.0-44.0); MEAN CORPUSCULAR HEMOGLOBIN 28 PG (26.0-33.0); MEAN CORPUSCULAR HGB CONC 33 g/dl (31.0-36.0); MEAN CORPUSCULAR VOLUME 86 fL (82-100); MONOCYTES # (AUTO) 0.6 K/uL (0.1-1.30); NEUTROPHILS % (AUTO) 82.1 % (43.0-81.0); PLATELET COUNT (AUTO) 242 K/uL (150-450); RED BLOOD CELL COUNT(AUTO) 2.89 MIL/uL (4.0-5.2); WHITE BLOOD COUNT (AUTO) 9.7 K/uL (4.3-11.0)
[2023-06-29 06:07] LABS: BILIRUBIN,TOTAL 0.2 mg/dL (0.2-1.0); CALCIUM, SERUM 8.5 mg/dL (8.5-10.1); CREATININE 0.9 mg/dL (0.6-1.3); MAGNESIUM 2.1 mg/dL (1.8-2.4); PHOSPHORUS 2.8 mg/dL (2.5-4.9); POTASSIUM 3.3 mmol/L (3.5-5.1); TOTAL PROTEIN, SERUM 6.3 g/dL (6.4-8.2)
[2023-06-29] MEDS: SUCRALFATE 1 G/10 ML UDC GT SCH ×4 (07:30→21:18)
[2023-06-29 08:00] VITALS: BP 114/62; TEMP 99; O2SAT 100
[2023-06-29] MEDS: DOCUSATE SODIUM 100 MG CAPSULE PO SCH ×2 (09:00→16:45)
[2023-06-29] MEDS: POLYETHYLENE GLYCOL 3350 17 GM POWD.PACK PO SCH (09:00)
[2023-06-29] MEDS: SIMETHICONE/SOD BICARB/CIT AC 1 EACH GRAN.EF.PK PO SCH ×3 (09:00→16:46)
[2023-06-29] MEDS: POTASSIUM CL. PREMIX PERIPHER. 50 ML IV SCH ×2 (09:12→10:16)
[2023-06-29] MEDS ORDERED: TPN BAG #32 IV SCH ×8 (10:53→15:33)
[2023-06-29] MEDS: CYCLOSPORINE EACHEYE SCH ×2 (12:00→23:11)
[2023-06-29] MEDS: PROCHLORPERAZINE EDISYLATE 10 MG/2 ML VIAL IVP SCH ×2 (12:01→17:34)
[2023-06-29 13:05] VITALS: BP 130/90; TEMP 98.4; O2SAT 100
[2023-06-29 18:03] VITALS: BP 118/75; TEMP 98.4; O2SAT 100
[2023-06-29 20:00] VITALS: BP 129/80; TEMP 99; O2SAT 98
[2023-06-29] MEDS: FAMOTIDINE (20 MG) 20 MG TABLET PO SCH (21:18)
[2023-06-29] MEDS: LORAZEPAM INJ 2 MG/ML VIAL IV PRN (21:19)
[2023-06-30] VITALS (7 sets, daily range): BP systolic 102–130; BP diastolic 63–83; TEMP 98.2–101.8; O2SAT 95–98
[2023-06-30] MEDS: PROCHLORPERAZINE EDISYLATE 10 MG/2 ML VIAL IVP SCH ×5 (00:10→23:46)
[2023-06-30] MEDS: BLOOD SUGAR DIAGNOSTIC 1 EACH STRIP IN SCH ×5 (06:00→23:46)
[2023-06-30 07:15] LABS: BASOPHILS % (AUTO) 0.4 % (0.0-2.0); EOSINOPHILS # (AUTO) 0.1 K/uL (0.0-0.7); EOSINOPHILS % (AUTO) 1.2 % (0.0-6.0); HEMATOCRIT 26 % (33-45); HEMOGLOBIN 8.4 g/dL (11.5-14.8); LYMPHOCYTES # (AUTO) 0.9 K/uL (0.8-4.8); LYMPHOCYTES % (AUTO) 9.7 % (20.0-44.0); MEAN CORPUSCULAR HEMOGLOBIN 28 PG (26.0-33.0); MEAN CORPUSCULAR HGB CONC 33 g/dl (31.0-36.0); MEAN CORPUSCULAR VOLUME 86 fL (82-100); MONOCYTES # (AUTO) 0.8 K/uL (0.1-1.30); MONOCYTES % (AUTO) 8.4 % (2.0-12.0); NEUTROPHILS # (AUTO) 7.2 K/uL (1.8-8.9); NEUTROPHILS % (AUTO) 80.3 % (43.0-81.0); PLATELET COUNT (AUTO) 222 K/uL (150-450); RED BLOOD CELL COUNT(AUTO) 2.98 MIL/uL (4.0-5.2); RED CELL DISTRIBUTION WIDTH 13.9 % (11.5-15.0)
[2023-06-30 07:42] LABS: ALBUMIN 2.2 g/dL (3.4-5.0); BILIRUBIN,TOTAL 0.5 mg/dL (0.2-1.0); CALCIUM, SERUM 8.6 mg/dL (8.5-10.1); CREATININE 0.9 mg/dL (0.6-1.3); PHOSPHORUS 2.8 mg/dL (2.5-4.9); POTASSIUM 3.4 mmol/L (3.5-5.1); TOTAL PROTEIN, SERUM 6.5 g/dL (6.4-8.2)
[2023-06-30] MEDS: SUCRALFATE 1 G/10 ML UDC GT SCH ×6 (07:59→21:21)
[2023-06-30] MEDS: ACETAMINOPHEN 325 MG TABLET PO PRN ×2 (08:12→20:08)
[2023-06-30] MEDS ORDERED: TPN BAG #33 IV SCH ×4 (08:44)
[2023-06-30] MEDS: SIMETHICONE/SOD BICARB/CIT AC 1 EACH GRAN.EF.PK PO SCH ×3 (09:00→16:53)
[2023-06-30] MEDS: DOCUSATE SODIUM 100 MG CAPSULE PO SCH ×2 (09:00→16:53)
[2023-06-30] MEDS: POLYETHYLENE GLYCOL 3350 17 GM POWD.PACK PO SCH (09:00)
[2023-06-30] MEDS: CYCLOSPORINE EACHEYE SCH ×2 (11:54→21:12)
[2023-06-30] MEDS: POTASSIUM CL. PREMIX PERIPHER. 50 ML IV SCH ×3 (12:09→13:27)
[2023-06-30] MEDS ORDERED: Magnesium 1GM/D5W 100ML PREMIX 100 ML IV SCH (14:00)
[2023-06-30] MEDS: FAT EMULSION 20% 500 ML in PREMIX 1 EA IV SCH (14:21)
[2023-06-30] MEDS: FAMOTIDINE (20 MG) 20 MG TABLET PO SCH (21:10)
[2023-06-30] MEDS: LORAZEPAM INJ 2 MG/ML VIAL IV PRN (21:14)
[2023-06-30] MEDS ORDERED: CEFEPIME 2 GM in IV D5W 100 ML IV ONE (23:30)
[2023-06-30] MEDS ORDERED: METRONIDAZOLE 500MG/ NS 100ML 500 MG in PREMIX 1 EA IV SCH (23:30)
[2023-07-01] VITALS: BP 132/65; TEMP 98.8; O2SAT 98
[2023-07-01] MEDS ORDERED: CEFEPIME 1 GM VIAL ONE (00:45)
[2023-07-01] MEDS ORDERED: METRONIDAZOLE 500MG/ NS 100ML 100 ML IV ONE (01:00)
[2023-07-01] MEDS ORDERED: TPN BAG #34 IV SCH ×4 (02:04)
[2023-07-01 05:00] VITALS: BP 121/63; TEMP 100.8; O2SAT 98
[2023-07-01] MEDS: BLOOD SUGAR DIAGNOSTIC 1 EACH STRIP IN SCH ×4 (05:21→23:56)
[2023-07-01] MEDS: PROCHLORPERAZINE EDISYLATE 10 MG/2 ML VIAL IVP SCH ×4 (05:21→23:44)
[2023-07-01] MEDS: ACETAMINOPHEN 325 MG TABLET PO PRN ×3 (05:21→23:56)
[2023-07-01] MEDS: SUCRALFATE 1 G/10 ML UDC GT SCH ×5 (07:25→22:00)
[2023-07-01 07:26] LABS: BASOPHILS % (AUTO) 0.4 % (0.0-2.0); EOSINOPHILS # (AUTO) 0.1 K/uL (0.0-0.7); EOSINOPHILS % (AUTO) 1.1 % (0.0-6.0); HEMATOCRIT 24 % (33-45); HEMOGLOBIN 7.9 g/dL (11.5-14.8); LYMPHOCYTES # (AUTO) 0.4 K/uL (0.8-4.8); LYMPHOCYTES % (AUTO) 4.4 % (20.0-44.0); MEAN CORPUSCULAR HEMOGLOBIN 28 PG (26.0-33.0); MEAN CORPUSCULAR HGB CONC 33 g/dl (31.0-36.0); MEAN CORPUSCULAR VOLUME 86 fL (82-100); MONOCYTES # (AUTO) 0.6 K/uL (0.1-1.30); MONOCYTES % (AUTO) 6.1 % (2.0-12.0); NEUTROPHILS # (AUTO) 8.9 K/uL (1.8-8.9); PLATELET COUNT (AUTO) 218 K/uL (150-450); RED BLOOD CELL COUNT(AUTO) 2.82 MIL/uL (4.0-5.2); RED CELL DISTRIBUTION WIDTH 13.8 % (11.5-15.0); WHITE BLOOD COUNT (AUTO) 10.1 K/uL (4.3-11.0)
[2023-07-01] MEDS: METRONIDAZOLE 500MG/ NS 100ML 500 MG in PREMIX 1 EA IV SCH ×3 (07:29→20:21)
[2023-07-01 07:50] LABS: BILIRUBIN,TOTAL 0.4 mg/dL (0.2-1.0); CALCIUM, SERUM 8.2 mg/dL (8.5-10.1); CREATININE 1.1 mg/dL (0.6-1.3); MAGNESIUM 2.1 mg/dL (1.8-2.4); PHOSPHORUS 2.1 mg/dL (2.5-4.9); POTASSIUM 3.2 mmol/L (3.5-5.1); TOTAL PROTEIN, SERUM 6.2 g/dL (6.4-8.2)
[2023-07-01 08:00] VITALS: BP 111/63; TEMP 99.5; O2SAT 98
[2023-07-01] MEDS: DOCUSATE SODIUM 100 MG CAPSULE PO SCH ×2 (09:12→16:35)
[2023-07-01] MEDS: CEFEPIME 2 GM in IV D5W 100 ML IV SCH ×2 (09:12→20:22)
[2023-07-01] MEDS: POLYETHYLENE GLYCOL 3350 17 GM POWD.PACK PO SCH (09:12)
[2023-07-01] MEDS: SIMETHICONE/SOD BICARB/CIT AC 1 EACH GRAN.EF.PK PO SCH ×3 (09:14→16:34)
[2023-07-01] MEDS: CYCLOSPORINE EACHEYE SCH ×2 (09:55→22:31)
[2023-07-01] MEDS: POTASSIUM CL. PREMIX PERIPHER. 50 ML IV SCH ×2 (10:36→11:08)
[2023-07-01] MEDS: POTASSIUM PHOSPHATE MM 7.5 MMOL in IV NS 0.9% 100 ML IV SCH ×4 (11:23→20:22)
[2023-07-01 12:00] VITALS: BP 111/63; TEMP 98.1; O2SAT 98
[2023-07-01 16:00] VITALS: BP 115/65; TEMP 98.2; O2SAT 98
[2023-07-01 16:39] LABS: HIV-1 p24 ANTIGEN NON REACTIVE (NONREACTIVE)
[2023-07-01 16:57] LABS: HIV-1/2 ANTIBODY REACTIVE (NONREACTIVE)
[2023-07-01 20:00] VITALS: BP 113/52; TEMP 99.3; O2SAT 95
[2023-07-01] MEDS ORDERED: TPN BAG #35 IV SCH ×4 (20:00)
[2023-07-01] MEDS: FAMOTIDINE (20 MG) 20 MG TABLET PO SCH (21:28)
[2023-07-01] MEDS: INSULIN REGULAR, HUMAN 100 UNIT/ML 3 ML VIAL SQ PRN (23:56)
[2023-07-02 04:00] VITALS: BP 114/68; TEMP 99; O2SAT 97
[2023-07-02] MEDS: METRONIDAZOLE 500MG/ NS 100ML 500 MG in PREMIX 1 EA IV SCH ×3 (04:14→20:24)
[2023-07-02] MEDS: PROCHLORPERAZINE EDISYLATE 10 MG/2 ML VIAL IVP SCH ×3 (05:07→18:20)
[2023-07-02] MEDS: BLOOD SUGAR DIAGNOSTIC 1 EACH STRIP IN SCH ×3 (05:46→16:09)
[2023-07-02] MEDS: INSULIN REGULAR, HUMAN 100 UNIT/ML 3 ML VIAL SQ PRN ×3 (05:47→17:29)
[2023-07-02 06:02] LABS: BASOPHILS # (AUTO) 0.1 K/uL (0.0-0.2); BASOPHILS % (AUTO) 0.7 % (0.0-2.0); EOSINOPHILS # (AUTO) 0.2 K/uL (0.0-0.7); EOSINOPHILS % (AUTO) 2.5 % (0.0-6.0); HEMATOCRIT 23 % (33-45); HEMOGLOBIN 7.7 g/dL (11.5-14.8); LYMPHOCYTES # (AUTO) 0.6 K/uL (0.8-4.8); MEAN CORPUSCULAR HEMOGLOBIN 29 PG (26.0-33.0); MEAN CORPUSCULAR HGB CONC 33 g/dl (31.0-36.0); MEAN CORPUSCULAR VOLUME 86 fL (82-100); MONOCYTES # (AUTO) 0.8 K/uL (0.1-1.30); MONOCYTES % (AUTO) 9.8 % (2.0-12.0); NEUTROPHILS # (AUTO) 6.3 K/uL (1.8-8.9); PLATELET COUNT (AUTO) 193 K/uL (150-450); RED BLOOD CELL COUNT(AUTO) 2.68 MIL/uL (4.0-5.2); RED CELL DISTRIBUTION WIDTH 14.2 % (11.5-15.0)
[2023-07-02 06:32] LABS: ALBUMIN 1.9 g/dL (3.4-5.0); BILIRUBIN,TOTAL 0.4 mg/dL (0.2-1.0); CALCIUM, SERUM 8.1 mg/dL (8.5-10.1); CREATININE 1.1 mg/dL (0.6-1.3); MAGNESIUM 2.1 mg/dL (1.8-2.4); PHOSPHORUS 3.9 mg/dL (2.5-4.9); POTASSIUM 3.4 mmol/L (3.5-5.1)
[2023-07-02] MEDS: SUCRALFATE 1 G/10 ML UDC GT SCH ×4 (07:57→21:43)
[2023-07-02 08:00] VITALS: BP 116/64; TEMP 98.8; O2SAT 97
[2023-07-02] MEDS: CEFEPIME 2 GM in IV D5W 100 ML IV SCH ×2 (08:45→20:24)
[2023-07-02] MEDS: DOCUSATE SODIUM 100 MG CAPSULE PO SCH ×2 (08:45→16:08)
[2023-07-02] MEDS: SIMETHICONE/SOD BICARB/CIT AC 1 EACH GRAN.EF.PK PO SCH ×3 (08:45→16:11)
[2023-07-02] MEDS: POLYETHYLENE GLYCOL 3350 17 GM POWD.PACK PO SCH ×2 (08:46→09:00)
[2023-07-02] MEDS: POTASSIUM CL. PREMIX PERIPHER. 50 ML IV SCH ×2 (09:59→11:08)
[2023-07-02] MEDS: CYCLOSPORINE EACHEYE SCH ×2 (11:09→23:05)
[2023-07-02] MEDS: VANCOMYCIN 1.25 GM in IV D5W 250 ML IV SCH (14:12)
[2023-07-02 16:00] VITALS: BP 116/64; TEMP 98.4; O2SAT 97
[2023-07-02] MEDS: FAT EMULSION 20% 500 ML in PREMIX 1 EA IV SCH (16:08)
[2023-07-02] MEDS: ACETAMINOPHEN 325 MG TABLET PO PRN ×3 (16:08→16:20)
[2023-07-02 20:00] VITALS: BP 124/68; TEMP 99.5; O2SAT 97
[2023-07-02] MEDS ORDERED: TPN BAG #36 IV SCH ×4 (20:00)
[2023-07-02] MEDS: FAMOTIDINE (20 MG) 20 MG TABLET PO SCH (21:43)
[2023-07-02] MEDS: LORAZEPAM INJ 2 MG/ML VIAL IV PRN (21:44)
[2023-07-02] MEDS ORDERED: POTASSIUM CL. PREMIX PERIPHER. 50 ML IV SCH (22:00)
[2023-07-03] MEDS: PROCHLORPERAZINE EDISYLATE 10 MG/2 ML VIAL IVP SCH ×4 (00:39→17:05)
[2023-07-03 04:00] VITALS: BP 106/65; TEMP 100.2; O2SAT 98
[2023-07-03] MEDS: METRONIDAZOLE 500MG/ NS 100ML 500 MG in PREMIX 1 EA IV SCH ×3 (05:07→20:16)
[2023-07-03] MEDS: BLOOD SUGAR DIAGNOSTIC 1 EACH STRIP IN SCH ×4 (06:00→17:05)
[2023-07-03 06:24] LABS: BASOPHILS # (AUTO) 0.1 K/uL (0.0-0.2); BASOPHILS % (AUTO) 0.5 % (0.0-2.0); EOSINOPHILS # (AUTO) 0.3 K/uL (0.0-0.7); EOSINOPHILS % (AUTO) 2.5 % (0.0-6.0); HEMATOCRIT 25 % (33-45); HEMOGLOBIN 8.2 g/dL (11.5-14.8); LYMPHOCYTES # (AUTO) 1.2 K/uL (0.8-4.8); LYMPHOCYTES % (AUTO) 9.8 % (20.0-44.0); MEAN CORPUSCULAR HEMOGLOBIN 28 PG (26.0-33.0); MEAN CORPUSCULAR HGB CONC 33 g/dl (31.0-36.0); MEAN CORPUSCULAR VOLUME 86 fL (82-100); MONOCYTES # (AUTO) 0.9 K/uL (0.1-1.30); MONOCYTES % (AUTO) 7.6 % (2.0-12.0); NEUTROPHILS # (AUTO) 9.3 K/uL (1.8-8.9); NEUTROPHILS % (AUTO) 79.6 % (43.0-81.0); PLATELET COUNT (AUTO) 257 K/uL (150-450); RED BLOOD CELL COUNT(AUTO) 2.94 MIL/uL (4.0-5.2); RED CELL DISTRIBUTION WIDTH 14.1 % (11.5-15.0); WHITE BLOOD COUNT (AUTO) 11.7 K/uL (4.3-11.0)
[2023-07-03] MEDS: ACETAMINOPHEN 325 MG TABLET PO PRN (06:29)
[2023-07-03 07:20] LABS: BILIRUBIN,TOTAL 0.3 mg/dL (0.2-1.0); CALCIUM, SERUM 8.4 mg/dL (8.5-10.1); POTASSIUM 3.5 mmol/L (3.5-5.1); TOTAL PROTEIN, SERUM 6.3 g/dL (6.4-8.2)
[2023-07-03 08:00] VITALS: BP 119/71; TEMP 97.7; O2SAT 98
[2023-07-03] MEDS: DOCUSATE SODIUM 100 MG CAPSULE PO SCH ×2 (08:23→16:50)
[2023-07-03] MEDS: POLYETHYLENE GLYCOL 3350 17 GM POWD.PACK PO SCH (08:23)
[2023-07-03] MEDS: SUCRALFATE 1 G TABLET PO SCH ×4 (08:24→22:00)
[2023-07-03] MEDS: SIMETHICONE/SOD BICARB/CIT AC 1 EACH GRAN.EF.PK PO SCH ×3 (08:29→17:04)
[2023-07-03] MEDS: CEFEPIME 2 GM in IV D5W 100 ML IV SCH ×2 (08:29→21:43)
[2023-07-03] MEDS: CYCLOSPORINE EACHEYE SCH ×2 (11:00→22:16)
[2023-07-03] MEDS: VANCOMYCIN 1.25 GM in IV D5W 250 ML IV SCH (14:20)
[2023-07-03 16:44] VITALS: BP 123/70; TEMP 98.2; O2SAT 99
[2023-07-03] MEDS: PROSOURCE / PROSTAT (PYXIS) 30 ML UDC PO SCH (17:04)
[2023-07-03 20:00] VITALS: BP 128/72; TEMP 99; O2SAT 96
[2023-07-03] MEDS ORDERED: TPN BAG #37 IV SCH ×4 (20:00)
[2023-07-03] MEDS: LORAZEPAM INJ 2 MG/ML VIAL IV PRN (20:32)
[2023-07-03] MEDS: FAMOTIDINE (20 MG) 20 MG TABLET PO SCH (22:00)
[2023-07-04] MEDS: PROCHLORPERAZINE EDISYLATE 10 MG/2 ML VIAL IVP SCH ×2 (00:46→05:34)
[2023-07-04] MEDS: BLOOD SUGAR DIAGNOSTIC 1 EACH STRIP IN SCH ×2 (01:04→05:42)
[2023-07-04 04:00] VITALS: BP 112/62; TEMP 100.2; O2SAT 97
[2023-07-04] MEDS: ACETAMINOPHEN 325 MG TABLET PO PRN (04:47)
[2023-07-04] MEDS: METRONIDAZOLE 500MG/ NS 100ML 500 MG in PREMIX 1 EA IV SCH (04:47)
[2023-07-04] MEDS: SUCRALFATE 1 G TABLET PO SCH (07:30)
[2023-07-04 07:58] LABS: BASOPHILS # (AUTO) 0.1 K/uL (0.0-0.2); BASOPHILS % (AUTO) 0.5 % (0.0-2.0); EOSINOPHILS # (AUTO) 0.1 K/uL (0.0-0.7); EOSINOPHILS % (AUTO) 1.3 % (0.0-6.0); HEMATOCRIT 25 % (33-45); HEMOGLOBIN 8.2 g/dL (11.5-14.8); LYMPHOCYTES % (AUTO) 10.8 % (20.0-44.0); MEAN CORPUSCULAR HEMOGLOBIN 28 PG (26.0-33.0); MEAN CORPUSCULAR HGB CONC 33 g/dl (31.0-36.0); MEAN CORPUSCULAR VOLUME 86 fL (82-100); MONOCYTES # (AUTO) 0.8 K/uL (0.1-1.30); MONOCYTES % (AUTO) 7.9 % (2.0-12.0); NEUTROPHILS # (AUTO) 7.7 K/uL (1.8-8.9); NEUTROPHILS % (AUTO) 79.5 % (43.0-81.0); PLATELET COUNT (AUTO) 256 K/uL (150-450); RED BLOOD CELL COUNT(AUTO) 2.93 MIL/uL (4.0-5.2); RED CELL DISTRIBUTION WIDTH 14.3 % (11.5-15.0); WHITE BLOOD COUNT (AUTO) 9.7 K/uL (4.3-11.0)
[2023-07-04 08:00] VITALS: BP 121/73; TEMP 98.8; O2SAT 97
[2023-07-04] MEDS: CEFEPIME 2 GM in IV D5W 100 ML IV SCH (08:20)
[2023-07-04] MEDS: PROSOURCE / PROSTAT (PYXIS) 30 ML UDC PO SCH (08:21)
[2023-07-04] MEDS: DOCUSATE SODIUM 100 MG CAPSULE PO SCH (08:22)
[2023-07-04] MEDS: POLYETHYLENE GLYCOL 3350 17 GM POWD.PACK PO SCH (08:22)
[2023-07-04] MEDS: SIMETHICONE/SOD BICARB/CIT AC 1 EACH GRAN.EF.PK PO SCH (08:23)
[2023-07-04 08:24] LABS: ALBUMIN 2.1 g/dL (3.4-5.0); BILIRUBIN,TOTAL 0.7 mg/dL (0.2-1.0); CALCIUM, SERUM 8.9 mg/dL (8.5-10.1); CREATININE 1.1 mg/dL (0.6-1.3); MAGNESIUM 1.9 mg/dL (1.8-2.4); PHOSPHORUS 3.5 mg/dL (2.5-4.9); POTASSIUM 3.3 mmol/L (3.5-5.1); TOTAL PROTEIN, SERUM 6.7 g/dL (6.4-8.2)
[2023-07-04] MEDS ORDERED: POTASSIUM CL. PREMIX PERIPHER. 50 ML IV SCH (11:00)
[2023-07-06 18:08] LABS: *HIV-1 RNA BY PCR <20 copies/mL (.)
== END 2023-07-04 10:56 | disposition home health service (06) | DRG 820 ==
LOC: ER 16:26 → MED 19:54 → ICU 06-16 11:39 → TELE1 06-21 17:20 → MEDSG1 07-01 13:59
PROVIDERS: ADMIT Internal Medicine
PROC: 0D968ZZ Drainage of Stomach, Via Natural or Artificial Opening Endoscopic (ICD-10-PCS; principal; 2023-06-06)
PROC: 0DB68ZX Excision of Stomach, Via Natural or Artificial Opening Endoscopic, Diagnostic (ICD-10-PCS; 2023-06-06)
PROC: 05H533Z Insertion of Infusion Device into Right Subclavian Vein, Percutaneous Approach (ICD-10-PCS; 2023-06-11)
PROC: B546ZZA Ultrasonography of Right Subclavian Vein, Guidance (ICD-10-PCS; 2023-06-11)
PROC: 0DJ08ZZ Inspection of Upper Intestinal Tract, Via Natural or Artificial Opening Endoscopic (ICD-10-PCS; 2023-06-13)
PROC: 02HV33Z Insertion of Infusion Device into Superior Vena Cava, Percutaneous Approach (ICD-10-PCS; 2023-06-13)
PROC: B548ZZA Ultrasonography of Superior Vena Cava, Guidance (ICD-10-PCS; 2023-06-13)
PROC: 0D160ZA Bypass Stomach to Jejunum, Open Approach (ICD-10-PCS; 2023-06-16)
PROC: 0DBL0ZX Excision of Transverse Colon, Open Approach, Diagnostic (ICD-10-PCS; 2023-06-16)
PROC: 0D1A0ZA Bypass Jejunum to Jejunum, Open Approach (ICD-10-PCS; 2023-06-16)
PROC: 05H633Z Insertion of Infusion Device into Left Subclavian Vein, Percutaneous Approach (ICD-10-PCS; 2023-06-25)
PROC: B547ZZA Ultrasonography of Left Subclavian Vein, Guidance (ICD-10-PCS; 2023-06-25)
DX: C83.33 Diffuse large B-cell lymphoma, intra-abdominal lymph nodes (principal); A41.9 Sepsis, unspecified organism; N17.0 Acute kidney failure with tubular necrosis; K85.90 Acute pancreatitis without necrosis or infection, unspecified; K31.5 Obstruction of duodenum; E44.0 Moderate protein-calorie malnutrition; E87.1 Hypo-osmolality and hyponatremia; I31.39 Other pericardial effusion (noninflammatory); N13.6 Pyonephrosis; J90 Pleural effusion, not elsewhere classified; R18.8 Other ascites; K31.84 Gastroparesis; K21.9 Gastro-esophageal reflux disease without esophagitis; K29.70 Gastritis, unspecified, without bleeding; E87.6 Hypokalemia; N28.1 Cyst of kidney, acquired; D47.2 Monoclonal gammopathy; D50.9 Iron deficiency anemia, unspecified; D63.8 Anemia in other chronic diseases classified elsewhere; E83.41 Hypermagnesemia; M89.8X9 Other specified disorders of bone, unspecified site; N18.9 Chronic kidney disease, unspecified; K29.80 Duodenitis without bleeding; E88.09 Other disorders of plasma-protein metabolism, not elsewhere classified; Z68.23 Body mass index [BMI] 23.0-23.9, adult; R59.0 Localized enlarged lymph nodes; R74.01 Elevation of levels of liver transaminase levels
CPT/HCPCS: 36410; 36415; 36569; 71045-TC; 71270-TC; 74246-TC; 76700-TC; 76770-TC; 78306-TC; 80048-TC; 80053-TC; 80061-TC; 80076-TC; 81001; 82040-TC; 82232; 82272-TC; 82378; 82570-TC; 82607-TC; 82728-TC; 82784; 82962-TC; 83540-TC; 83605-TC; 83615-TC; 83690-TC; 83735-TC; 83935-TC; 84100-TC; 84134-TC; 84155; 84165; 84295-TC; 84300-TC; 84443-TC; 84478-TC; 84703-TC; 85025-TC; 85027-TC; 85730-TC; 86300; 86301; 86304; 86334; 86706; 86803; 86850-TC; 87040-TC; 87081-TC; 87086-TC; 87340; 87536; 87806; 88305-TC; 88313-TC; 88342; 93307-TC; 97110-TC; 97116-TC; 97530-TC; A4216; A4223; A9503; A9563; C9113; G0378; J0330; J0690; J0692; J0780; J1100; J1170; J1200; J1644; J1815; J1885; J2060; J2270; J2405; J2704; J2765; J2916; J3010; J3370; J3475; J3480; J3490; J7030; J7040; J7042; J7050; J7060; J7120; J8597; Q9963; Q9967